=== PATIENT | male | born 1960 | race Caucasian/White ===

== ENCOUNTER 2016-11-17 11:38 | Inpatient (IN) | payer OTHER ==
[~2016-11-17] VITALS: Ht 180.3 cm; Wt 74.8 kg
[~2016-11-17 11:38] MED LIST: ASCO500C7 PO; BUPR75TA9 G-TUBE; CHOL100062 G-TUBE; LANS30CA GTB; MULT-552 GTB; VITA1CAP38 GTB
[2016-11-17] MEDS ORDERED: ONDANSETRON 4 MG INJ IV STA ×3 (15:12→18:20)
[2016-11-17] MEDS ORDERED: SOD CHLORIDE 0.9% 500 ML IV STA (15:12)
[2016-11-17] MEDS ORDERED: morphine 2 MG INJ IV STA (15:12)
[2016-11-17 15:42] LABS: BASOPHILS % 0.3 % (0.0-2.0); EOSINOPHILS % 0.1 % (0.0-7.0); HEMATOCRIT 38.3 % (42.0-52.0); LYMPHOCYTES # 1.6 10^3/ul (0.8-2.9); LYMPHOCYTES % 15.3 % (15.0-51.0); MEAN CORPUSCULAR HEMOGLOBIN 31.3 pg (29.0-33.0); MEAN CORPUSCULAR HGB CONC 33.9 g/dl (32.0-37.0); MEAN CORPUSCULAR VOLUME 92.2 fl (82.0-101.0); MONOCYTE # 0.6 10^3/ul (0.3-0.9); MONOCYTES % 6.2 % (0.0-11.0); NEUTROPHILS % 78.1 % (39.0-77.0); PLATELET COUNT 313 10^3/UL (140-440); RED BLOOD COUNT 4.16 10^6/ul (4.70-6.10); RED CELL DISTRIBUTION WIDTH 13.1 % (11.5-14.5); UNCORRECTED WBC 10.3 10^3/ul (4.8-10.8); WHITE BLOOD COUNT 10.3 10^3/ul (4.8-10.8)
[2016-11-17 15:44] LABS: CONDITION 1
[2016-11-17 15:48] LABS: INR 0.83; PT RATIO 0.9
[2016-11-17 15:49] LABS: ALBUMIN 4.5 g/dl (3.3-4.9); CHLORIDE 97 mmol/L (97-110)
[2016-11-17 15:50] LABS: POTASSIUM 4.2 mmol/L (3.5-5.1); SODIUM 145 mmol/L (135-144)
[2016-11-17 15:52] LABS: ALBUMIN/GLOBULIN RATIO 1.12; ALKALINE PHOSPHATASE 121 IU/L (42-121); ANION GAP 23 (8-16); ASPARTATE AMINO TRANSFERASE 21 IU/L (15-46); BILIRUBIN,INDIRECT 0.6 mg/dl (0-1.1); BILIRUBIN,TOTAL 0.6 mg/dl (0.2-1.3); BLOOD UREA NITROGEN 42 mg/dl (7-20); CARBON DIOXIDE 29 mmol/L (21-31); CREATININE 2.47 mg/dl (0.61-1.24); TOTAL PROTEIN 8.5 g/dl (6.1-8.1)
[2016-11-17 15:53] LABS: ALANINE AMINOTRANSFERASE 22 IU/L (13-69); CALCIUM 9.8 mg/dl (8.4-10.2); GLUCOSE 100 mg/dl (70-220)
[2016-11-17 16:05] LABS: TROPONIN-I < 0.012 ng/ml (0.00-0.12)
[2016-11-17 16:53] LABS: PARTIAL THROMBOPLASTIN TIME < 20.0 Sec (25.0-35.0); PROTIME 11.4 Sec (12.2-14.2)
[2016-11-17] MEDS ORDERED: METOCLOPRAMIDE 10 MG INJ IV ONE (17:00)
--- NOTE | 2016-11-17 17:50 | RADRPT ---
PROCEDURE: CT scan of the abdomen and pelvis without IV contrast. CLINICAL INDICATION: Abdominal pain. TECHNIQUE: Thin section axial, coronal and sagittal images were performed through the abdomen and pelvis without contrast. Radiation Dose: CTDI: 8.46 and DLP: 497.82. One or more of the following dose reduction techniques were used: - Automated exposure control. - Adjustment of the mA and/or kV according to patient size. Use of iterative reconstruction technique. COMPARISON: CT scan abdomen pelvis 07/11/2015. FINDINGS: Soft tissues: Normal. Lungs and pleural spaces:There is peripheral compressive atelectasis in the right lower lobe. This and vascular crowding and ground-glass infiltrate consistent with atelectasis inferior to the left hilum. No pleural effusion is present. Heart: Heart is normal in size. No pericardial effusion is present. The liver, common bile duct and gallbladder: The liver is normal. The gallbladder is normal. Gastrointestinal: There is a moderate size hiatal hernia. A gastrostomy tube is positioned in the s tomach. Stomach is incompletely distended mass likely accounts for gastric wall thickening. No asy mmetric gastric mass is identified. The small bowel loops and a normal caliber. There is fecal mat erial in the ascending and descending colon. The vermiform appendix is normal. There is no evidenc e of diverticulosis or diverticulitis. There is fecal material in the rectal ampulla. There are jadiel ateral inguinal hernias containing fat. Pancreas: The pancreas and extrahepatic common bile duct are normal. Kidneys, bladder and adrenal glands : The kidneys and urinary bladder are normal. The adrenal gland s are normal. Spleen: Normal. Lymph nodes: No enlarged inguinal, pelvic sidewall, mesenteric or retroperitoneal lymph nodes are id entified. Reproductive system and pelvis : Normal. Bony elements: There are degenerative osteophytes in the thoracic and lumbar spine. Vasculature: There are vascular calcifications in the abdominal aorta proximal left renal artery and distal left common iliac artery. IMPRESSION: 1. There is a small hiatal hernia. 2. Bibasilar atelectasis. 3. Satisfactory positioning of a gastrostomy tube in the stomach. Gastric wall thickening is attri buted to incomplete distension and is unchanged compared to the prior CT scan of 11/16/2015. Clinic al correlation is needed. 4. Atherosclerotic vascular disease. 5. 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 6. Bilateral inguinal hernias containing fat. RPTAT:AAJJ Rishi Luna, Physician Date Time Electronically viewed and signed by Rishi Luna Physician on 11/17/2016 17:50 JM/
[2016-11-17] MEDS ORDERED: SOD CHLORIDE 0.9% 1,000 ML IV ONE (18:30)
[2016-11-17] MEDS ORDERED: LORAZEPAM 2 MG INJ IV ONE (18:30)
[2016-11-17] MEDS ORDERED: morphine 2 MG INJ IV ONE (18:30)
[2016-11-17] MEDS ORDERED: FAMOTIDINE 20 MG INJ IV ONE (20:00)
[2016-11-17] MEDS ORDERED: ACETAMINOPHEN 325 MG TAB PO PRN (20:30)
[2016-11-17] MEDS ORDERED: ONDANSETRON 4 MG INJ IV PRN (20:30)
[2016-11-17 20:32] LABS: ADD UMIC YES; URINE BILIRUBIN (Dip) NEGATIVE (NEGATIVE); URINE BLOOD (Dip) NEGATIVE (NEGATIVE); URINE COLOR LT. YELLOW (YELLOW); URINE GLUCOSE (Dip) NEGATIVE (NEGATIVE); URINE KETONES (Dip) TRACE (NEGATIVE); URINE LEUKOCYTE ESTERASE (Dip) TRACE (NEGATIVE); URINE NITRITE (Dip) NEGATIVE (NEGATIVE); URINE TOTAL PROTEIN (Dip) TRACE (NEGATIVE); URINE UROBILINOGEN (Dip) 0.2 E.U./dL (0.1-1.0)
[2016-11-17 20:39] LABS: BACTERIA,URINE FEW; URINE RBCS 0-2 /HPF (0)
[2016-11-17 20:40] LABS: SQUAMOUS EPITHELIAL CELL,UR RARE
[2016-11-17] MEDS ORDERED: PROMETHAZINE (1.25 MG/ML) 5 ML CUP GTB ONE (21:30)
[2016-11-17 22:08] VITALS: PULSE 75; TEMP 99.2
--- NOTE | 2016-11-17 22:39 | ERD ---
ER Documentation Chief Complaint Date/Time DATE: 11/17/16 TIME: 22:29 Chief Complaint abdominal pain and nausea and vomiting for 2 days. no blood in emesis HPI This 46-year-old male presents emergency room for right lower quadrant, abdominal pain and nausea going for 2 days. No hematemesis. No diarrhea. She denies any fever chills, chest pain or shortness of breath. States this is happened to him proximal only 4 years ago and he couldn't stop vomiting for a few days and no one can find out why. ROS All systems reviewed and are negative except as per history of present illness. Medications Home Meds Reported Medications Ascorbic Acid* (Vitamin C*) 500 Mg Capsule.sa, 500 MG PO DAILY, CAP 09/25/16 Multivitamins* (Once Daily*) 1 Tab Tablet, 1 TAB GTB DAILY, TAB 02/28/16 Vitamin B Complex* (Vitamin B Complex*) 1 Cap Capsule, 1 CAP GTB DAILY, CAP 02/28/16 Cholecalciferol* (Vitamin D3*) 1,000 Unit Tablet, 1000 UNIT G-TUBE DAILY, TAB 02/28/16 Bupropion Hcl* (Bupropion Hcl*) 75 Mg Tablet, 75 MG G-TUBE BID, TAB 09/18/15 Lansoprazole* (Lansoprazole*) 30 Mg Capsule.dr, 30 MG GTB BID, CAP 01/14/15 Allergies Allergies: Coded Allergies: No Known Allergy (Verified , 09/25/16) PMhx/Soc History of Surgery: No (LEFT ARM SX '92, ABDOMEN SX '92, GTUBE) Anesthesia Reaction: No Hx Neurological Disorder: No Hx Respiratory Disorders: No Hx Cardiac Disorders: No Hx Psychiatric Problems: No Hx Alcohol Use: No Hx Substance Use: No Hx Tobacco Use: No Smoking Status: Former smoker Physical Exam Vitals Vital Signs Date Time Temp Pulse Resp B/P Pulse Ox O2 Delivery O2 Flow Rate FiO2 11/17/16 22:08 99.2 75 20 144/86 97 Room Air 11/17/16 20:00 99.2 80 20 135/75 100 Room Air 11/17/16 18:00 98.7 72 20 131/80 100 Room Air 11/17/16 16:00 98.7 77 20 153/86 96 Room Air 11/17/16 12:01 98.5 102 20 123/83 100 Physical Exam Const: [] Mild amount of distress, appears very comfortable, vomiting Head: Atraumatic Eyes: Normal Conjunctiva ENT: Normal External Ears, Nose and Mouth. Neck: Full range of motion..~ No meningismus. Resp: Clear to auscultation bilaterally Cardio: Regular tachycardia, no murmurs Abd: Soft, mild right lower quadrant tenderness without guarding or rebound, non distended. Normal bowel sounds Skin: No petechiae or rashes Back: No midline or flank tenderness Ext: No cyanosis, or edema Neur: Awake and alert and oriented 3, no focal deficits Psych: Normal Mood and Affect Result Diagram: 11/17/16 1525 11/17/16 1525 Results 24 hrs Laboratory Tests Test 11/17/16 15:25 11/17/16 16:25 11/17/16 20:09 Alanine Aminotransferase (ALT/SGPT) 22IU/L Albumin 4.5g/dl Albumin/Globulin Ratio 1.12 Alkaline Phosphatase 121IU/L Anion Gap 23 Aspartate Amino Transf (AST/SGOT) 21IU/L Basophils # 0.010^3/ul Basophils % 0.3% Blood Urea Nitrogen 42mg/dl Calcium Level 9.8mg/dl Carbon Dioxide Level 29mmol/L Chloride Level 97mmol/L Creatinine 2.47mg/dl Direct Bilirubin 0.00mg/dl Eosinophils # 0.010^3/ul Eosinophils % 0.1% Globulin 4.00g/dl Glucose Level 100mg/dl Hematocrit 38.3% Hemoglobin 13.0g/dl Indirect Bilirubin 0.6mg/dl Lactic Acid Level 2.2mmol/L Lipase 117U/L Lymphocytes # 1.610^3/ul Lymphocytes % 15.3% Mean Corpuscular Hemoglobin 31.3pg Mean Corpuscular Hemoglobin Concent 33.9g/dl Mean Corpuscular Volume 92.2fl Mean Platelet Volume 8.0fl Monocytes # 0.610^3/ul Monocytes % 6.2% Neutrophils # 8.010^3/ul Neutrophils % 78.1% Nucleated Red Blood Cells # 0.010^3/ul Nucleated Red Blood Cells % 0.0/100WBC Platelet Count 20859^3/UL Potassium Level 4.2mmol/L Red Blood Count 4.1610^6/ul Red Cell Distribution Width 13.1% Sodium Level 145mmol/L Total Bilirubin 0.6mg/dl Total Protein 8.5g/dl Troponin I < 0.012ng/ml White Blood Count 10.310^3/ul Activated Partial Thromboplast Time < 20.0Sec INR International Normalized Ratio 0.83 Prothrombin Time 11.4Sec Prothrombin Time Ratio 0.9 Urine Bacteria FEW Urine Bilirubin NEGATIVE Urine Clarity CLEAR Urine Color LT. YELLOW Urine Glucose NEGATIVE% Urine Hemoglobin NEGATIVE Urine Ketones TRACE Urine Leukocyte Esterase TRACE Urine Microscopic RBC 0-2/HPF Urine Microscopic WBC 0-2/HPF Urine Nitrite NEGATIVE Urine Specific [place] 1.010 Urine Squamous Epithelial Cells RARE Urine Total Protein TRACE Urine Urobilinogen 0.2 E.U./dL Urine pH 8.5 Current Medications Medications (Trade) Dose Ordered Sig/Dasia Route PRN Reason Start Time Stop Time Status Last Admin Dose Admin Sodium Chloride (NS) 500 ml @ 500 mls/hr Q1H STAT IV 11/17/16 15:12 11/17/16 16:11 DC 11/17/16 15:46 Morphine Sulfate (morphine) 2 mg ONCE STAT IV 11/17/16 15:12 11/17/16 15:13 DC 11/17/16 15:33 Ondansetron HCl (Zofran Inj) 4 mg ONCE STAT IV 11/17/16 15:12 11/17/16 15:13 DC 11/17/16 15:33 Ondansetron HCl (Zofran Inj) 4 mg ONCE STAT IV 11/17/16 16:38 11/17/16 16:39 DC 11/17/16 16:58 Metoclopramide HCl (Reglan) 10 mg ONCE ONCE IV 11/17/16 17:00 11/17/16 17:01 DC 11/17/16 16:58 Ondansetron HCl (Zofran Inj) 4 mg ONCE STAT IV 11/17/16 18:20 11/17/16 18:27 DC 11/17/16 18:40 Lorazepam (Ativan) 1 mg ONCE ONCE IV 11/17/16 18:30 11/17/16 18:31 DC 11/17/16 18:40 Morphine Sulfate 1 mg 1 mg ONCE ONCE IV 11/17/16 18:30 11/17/16 18:31 DC 11/17/16 18:40 Sodium Chloride (NS) 1,000 ml @ 1,000 mls/hr Q1H ONCE IV 11/17/16 18:30 11/17/16 19:29 DC 11/17/16 18:40 Famotidine (Pepcid Iv) 20 mg ONCE ONCE IV 11/17/16 20:00 11/17/16 20:01 DC 11/17/16 20:14 Ondansetron HCl (Zofran Inj) 4 mg BRIDGE ORDER PRN IV NAUSEA AND/OR VOMITING 11/17/16 20:30 11/18/16 20:29 Acetaminophen (Tylenol Tab) 650 mg ER BRIDGE PRN PO MILD PAIN/FEVER 11/17/16 20:30 11/18/16 20:29 Promethazine HCl (Phenergan Liq) 25 mg ONCE ONCE GTB 11/17/16 21:30 11/17/16 21:31 DC 11/17/16 21:56 Procedures/MDM Intractable vomiting and 56-year-old male. No obvious etiology on CAT scan. No signs of serious bacterial infection. Multiple doses of antiemetics and then used with a total 12 of Zofran, 10 of Reglan and 1 of Ativan. Following that the patient vomited small amount of brown liquid. Also given him Phenergan through his G-tube. Is abdominal pain was easily controlled with morphine. Originally in 2 mg does control the pain returned and he was given 4 mg. was given 2 L of normal saline for dehydration after which time is initially mild tachycardia resolved completely. Is already creatinine is consistent with his baseline of renal insufficiency. Vital signs are stable. I am admitting him for further treatment of his intractable nausea vomiting and possible GI or surgical consults. States it is similar episode 4 years ago in which she the cause was not found but after hospitalization multiple doses of medication resolved. Dr. Ni is admitting the patient. CT abdomen and pelvis interpretation by myself: See no acute process, no signs of intestinal obstruction such as air-fluid levels, no free air, no abnormal fat stranding, no fractures Departure Diagnosis: Primary Impression: Intractable vomiting Additional Impressions: Dehydration Abdominal pain Condition: Stable BOBOSIDNEYTRERANCE BENNETT Nov 17, 2016 22:39
[2016-11-17 23:18] VITALS: Ht 180.3 cm; Wt 74.8 kg
[2016-11-18] MEDS ORDERED: DEXTROSE 5%-0.225% NACL 1,000 ML IV SCH (01:00)
[2016-11-18] MEDS ORDERED: ONDANSETRON INJ 8 MG in DEXTROSE 5% 50 ML IV PRN ×2 (01:00→01:30)
[2016-11-18] MEDS ORDERED: METOCLOPRAMIDE 10 MG INJ IV PRN (01:00)
[2016-11-18 01:19] VITALS: BP 158/88; RESP 18
[2016-11-18] MEDS: DEXTROSE 5%-0.45% NACL 1,000 ML IV SCH ×2 (01:24→14:54)
--- NOTE | 2016-11-18 05:39 | HP ---
Date/Time of Note Date/Time of Note DATE: 11/18/16 TIME: 05:30 Assessment/Plan VTE Prophylaxis VTE Prophylaxis Intervention: heparin Lines/Catheters IV Catheter Type (from Nrs): Saline Lock Assessment/Plan Assessment/Plan IMPRESSION 1. Abdominal pain and intractable N/V 2. History of laryngeal cancer status post radiation therapy in the remote past. 3. Chronic kidney disease, stable 4. Chronic anemia, likely secondary to chronic kidney disease. 5. Mild Hypernatremia 6. Chronic depression and anxiety. 7. Chronic ataxia PLAN Abd pain is chronic and his vomiting could be from g-tube irritation. Will provide pain meds and anti-emetics Will consult GI if symptoms persisted Will cont home meds with adjustment as needed Avoid nephrotoxins and renally dose all meds HPI/ROS Admit Date/Time Admit Date/Time Nov 17, 2016 at 20:14 Hx of Present Illness . Chief Complaint abdominal pain and nausea and vomiting for 2 days. no blood in emesis This 46-year-old male presents emergency room for right lower quadrant, abdominal pain and nausea going for 2 days. No hematemesis. No diarrhea. She denies any fever chills, chest pain or shortness of breath. States this is happened to him proximal only 4 years ago and he couldn't stop vomiting for a few days and no one can find out why. He was last admitted here about a month ago and had his G-tube replaced. He was also discharged with nectar thick diet after speech/swallow eval. In ER today CTa/p showed the followin. There is a small hiatal hernia. Bibasilar atelectasis. Satisfactory positioning of a gastrostomy tube in the stomach. Gastric wall thickening is attributed to incomplete distension and is unchanged compared to the prior CT scan of 11/16/2015. Clinical correlation is needed. Atherosclerotic vascular disease. 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 Bilateral inguinal hernias containing fat. PMH/Family/Social Past Medical History Medical History: cancer, renal disease Past Surgical History Past Surgical Hx: other Social History Alcohol Use: none Smoking Status: Former smoker Drug Use: none Exam/Review of Systems Vital Signs Vitals Vital Signs Date Time Temp Pulse Resp B/P Pulse Ox O2 Delivery O2 Flow Rate FiO2 11/18/16 01:19 98.9 75 18 158/88 97 11/17/16 22:08 Room Air Intake and Output 11/17/16 11/17/16 11/18/16 15:00 23:00 07:00 Output Total 650 ml Balance -650 ml Exam Exam GENERAL: The patient was alert and oriented, no distress, mildly anxious HEENT: Head was normocephalic. Pupils were equal and reactive. NECK: Supple. CHEST: Clear to auscultation. CARDIOVASCULAR: S1 and S2, no murmur. ABDOMEN: Sore, not exactly tender, but soft. Normoactive bowel sounds. G- tube in place. EXTREMITIES: Negative for edema. NEUROLOGIC: The patient had no focal deficits, but reports the history of ataxia which is chronic. PSYCHIATRIC: Cooperative with exam. Labs Result Diagram: 11/17/16 1525 11/17/16 1525 Medications Medications Current Medications Bupropion HCl (Wellbutrin) 75 mg BID GTB ; Start 11/18/16 at 09:00 Cholecalciferol (Vitamin D) 1,000 unit DAILY GTB ; Start 11/18/16 at 09:00 Multivitamins (Thera-Plus) 5 ml DAILY GTB ; Start 11/18/16 at 09:00 Vitamin B Complex/ Vitamin C (Berocca) 1 cap DAILY GTB ; Start 11/18/16 at 09:00 Ascorbic Acid (Vitamin C) 500 mg DAILY GTB ; Start 11/18/16 at 09:00 Famotidine (Pepcid Iv) 20 mg DAILY IV ; Start 11/18/16 at 09:00 Metoclopramide HCl 10 mg 10 mg Q6H PRN IV NAUSEA AND/OR VOMITING; Start at 01:00 Ondansetron HCl 8 mg/Dextrose 54 ml @ 108 mls/hr Q6H PRN IV NAUSEA AND/OR VOMITING; Start 11/18/16 at 01:30 Dextrose/Sodium Chloride (D5-1/2ns) 1,000 ml @ 75 mls/hr [id number] IV Last administered on 11/18/16t 01:24; Admin Dose 75 MLS/HR; Start 11/18/16 at 01:30 STEWART MCKINNEY MD Nov 18, 2016 05:39
[2016-11-18] MEDS ORDERED: METOCLOPRAMIDE 10 MG INJ IV SCH (06:00)
[2016-11-18 07:24] VITALS: BP 111/72; RESP 18
[2016-11-18] MEDS ORDERED: FAMOTIDINE 20 MG INJ IV SCH ×2 (09:00→21:00)
[2016-11-18] MEDS: ASCORBIC ACID 500 MG TAB GTB SCH (09:17)
[2016-11-18] MEDS: VITAMIN B COMPLEX/VIT C CAP GTB SCH (09:17)
[2016-11-18] MEDS: BUPROPION 75 MG TAB GTB SCH ×2 (09:17→21:20)
[2016-11-18] MEDS: MULTIVITAMINS 5 ML CUP GTB SCH (09:17)
[2016-11-18] MEDS: CHOLECALCIFEROL 1,000 UNIT TAB GTB SCH (09:17)
--- NOTE | 2016-11-18 13:05 | CONS ---
Date/Time of Note Date/Time of Note DATE: 11/18/16 TIME: 13:04 Assessment/Plan Assessment/Plan Additional Assessment/Plan Abdominal pain Nausea Vomiting * Evaluate secondary to PUD versus bolus G-tube feeds * EGD plus PEG 09-30-16: 1. Old gastrostomy tube removed. 2. Esophagitis, moderate. 3. Gastritis and duodenitis. Rule out H. pylori infection. Biopsies obtained. 4. New percutaneous endoscopic gastrostomy tube placement with [place] [address] tube. * CT abdomen 11-17-16: The liver, common bile duct and gallbladder: The liver is normal. The gallbladder is normal.Gastrointestinal: There is a moderate size hiatal hernia. A gastrostomy tube is positioned in the stomach. Stomach is incompletely distended mass likely accounts for gastric wall thickening. No asymmetric gastric mass is identified. The small bowel loops and a normal caliber. There is fecal material in the ascending and descending colon. The vermiform appendix is normal. There is no evidence of diverticulosis or diverticulitis. There is fecal material in the rectal ampulla. There are bilateral inguinal hernias containing fat. Pancreas: The pancreas and extrahepatic common bile duct are normal. * Nutrition consult to advise on bolus G-tube feeding * May need case management consult to get pump for G-tube * Stool OB * PPI therapy * Monitor labs Dysphagia * Monitor tube feed for residuals greater than 150 mLs Further recommendations depend on clinical course Patient seen in collaboration with Dr. 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 Patient states he was not eating anything out of the ordinary. Patient reports last male was ice cream. Patient reports majority of nutrition from G-tube feed. Patient has had G-tube since August 2014 prior to completion of radiation and chemotherapy. Patient has also had G-tube replaced in the emergency room due to malfunctioning on September 18, 2015 and November 10, 2015. Patient also had EGD with G-tube replacement with Dr. Jackson January 06, 2016 and 09-30-16 and both noted erosive esophagitis, gastritis, biopsy negative for H. pylori and malignancy. Per bedside nurse, caregiver provides 500 mL bolus tube feed 3 times daily. Caregiver not at bedside during evaluation. Past Medical History Medical History: cancer, renal disease Past Surgical History Past Surgical Hx: other Social History Alcohol Use: none Smoking Status: Former smoker Drug Use: none Exam/Review of Systems Vital Signs Vitals Vital Signs Date Time Temp Pulse Resp B/P Pulse Ox O2 Delivery O2 Flow Rate FiO2 11/18/16 07:24 98.0 72 18 111/72 98 11/17/16 22:08 Room Air Intake and Output 11/17/16 11/17/16 11/18/16 15:00 23:00 07:00 Intake Total 300 ml Output Total 650 ml Balance -650 ml 300 ml Exam Constitutional: alert, oriented, well developed Psych: nl mood/affect Eyes: EOMI Respiratory: clear to auscultation Cardiovascular: regular rate and rhythm Gastrointestinal: soft, non tender Neurological: DECK MOLDER II-XII intact Results Result Diagram: 11/17/16 1525 11/17/16 1525 Results 24 hrs Laboratory Tests Test 11/17/16 15:25 11/17/16 16:25 11/17/16 20:09 Alanine Aminotransferase (ALT/SGPT) 22 Albumin 4.5 Albumin/Globulin Ratio 1.12 Alkaline Phosphatase 121 Anion Gap 23 H Aspartate Amino Transf (AST/SGOT) 21 Basophils # 0.0 Basophils % 0.3 Blood Urea Nitrogen 42 H Calcium Level 9.8 Carbon Dioxide Level 29 Chloride Level 97 Creatinine 2.47 H Direct Bilirubin 0.00 Eosinophils # 0.0 Eosinophils % 0.1 Globulin 4.00 H Glucose Level 100 Hematocrit 38.3 #L Hemoglobin 13.0 #L Indirect Bilirubin 0.6 Lactic Acid Level 2.2 Lipase 117 Lymphocytes # 1.6 Lymphocytes % 15.3 Mean Corpuscular Hemoglobin 31.3 Mean Corpuscular Hemoglobin Concent 33.9 Mean Corpuscular Volume 92.2 Mean Platelet Volume 8.0 Monocytes # 0.6 Monocytes % 6.2 Neutrophils # 8.0 H Neutrophils % 78.1 H Nucleated Red Blood Cells # 0.0 Nucleated Red Blood Cells % 0.0 Platelet Count 313 Potassium Level 4.2 Red Blood Count 4.16 #L Red Cell Distribution Width 13.1 Sodium Level 145 H Total Bilirubin 0.6 Total Protein 8.5 H Troponin I < 0.012 White Blood Count 10.3 # Activated Partial Thromboplast Time < 20.0 L INR International Normalized Ratio 0.83 Prothrombin Time 11.4 #L Prothrombin Time Ratio 0.9 Urine Bacteria FEW Urine Bilirubin NEGATIVE Urine Clarity CLEAR Urine Color LT. YELLOW Urine Glucose NEGATIVE Urine Hemoglobin NEGATIVE Urine Ketones TRACE Urine Leukocyte Esterase TRACE H Urine Microscopic RBC 0-2 Urine Microscopic WBC 0-2 Urine Nitrite NEGATIVE Urine Specific [place] 1.010 Urine Squamous Epithelial Cells RARE Urine Total Protein TRACE Urine Urobilinogen 0.2 E.U./dL Urine pH 8.5 Medications Medications Current Medications Bupropion HCl (Wellbutrin) 75 mg BID GTB Last administered on 11/18/16 09:17; Admin Dose 75 MG; Start 11/18/16 at 09:00 Cholecalciferol (Vitamin D) 1,000 unit DAILY GTB Last administered on 11/18/16:; Admin Dose 1,000 UNIT; Start 11/18/16 at 09:00 Multivitamins (Thera-Plus) 5 ml DAILY GTB Last administered on 11/18/16:; Admin Dose 5 ML; Start 11/18/16 at 09:00 Vitamin B Complex/ Vitamin C (Berocca) 1 cap DAILY GTB Last administered on 11/18 09:17; Admin Dose 1 CAP; Start 11/18/16 at 09:00 Ascorbic Acid (Vitamin C) 500 mg DAILY GTB Last administered on 11/18/16:17 ; Admin Dose 500 MG; Start 11/18/16 at 09:00 Famotidine (Pepcid Iv) 20 mg DAILY IV Last administered on 11/18/16:17; Admin Dose 20 MG; Start 11/18/16 at 09:00 Metoclopramide HCl 10 mg 10 mg Q6H PRN IV NAUSEA AND/OR VOMITING; Start at 01:00 Ondansetron HCl 8 mg/Dextrose 54 ml @ 108 mls/hr Q6H PRN IV NAUSEA AND/OR VOMITING; Start 11/18/16 at 01:30 Dextrose/Sodium Chloride (D5-1/2ns) 1,000 ml @ 75 mls/hr [id number] IV Last administered on 11/18/16 01:24; Admin Dose 75 MLS/HR; Start 11/18/16 at 01:30 MINAL MAY 4, 2017 13:05
[2016-11-18] MEDS: FAMOTIDINE 20 MG INJ IV SCH (14:51)
[2016-11-18 20:42] VITALS: BP 108/66; RESP 20
[2016-11-18] MEDS ORDERED: BACLOFEN 10 MG TAB GTB ONE (23:00)
[2016-11-19] MEDS: DEXTROSE 5%-0.45% NACL 1,000 ML IV SCH ×2 (03:53→17:08)
[2016-11-19 07:06] LABS: BASOPHILS % 0.6 % (0.0-2.0); EOSINOPHILS # 0.2 10^3/ul (0.0-0.5); EOSINOPHILS % 2.4 % (0.0-7.0); HEMATOCRIT 27.5 % (42.0-52.0); HEMOGLOBIN 9.5 g/dl (14.0-18.0); LYMPHOCYTES # 1.4 10^3/ul (0.8-2.9); LYMPHOCYTES % 19.7 % (15.0-51.0); MEAN CORPUSCULAR HEMOGLOBIN 31.8 pg (29.0-33.0); MEAN CORPUSCULAR HGB CONC 34.4 g/dl (32.0-37.0); MEAN CORPUSCULAR VOLUME 92.5 fl (82.0-101.0); MEAN PLATELET VOLUME 8.2 fl (7.4-10.4); MONOCYTE # 0.6 10^3/ul (0.3-0.9); MONOCYTES % 8.3 % (0.0-11.0); NEUTROPHIL # 4.9 10^3/ul (1.6-7.5); PLATELET COUNT 232 10^3/UL (140-440); RED BLOOD COUNT 2.98 10^6/ul (4.70-6.10); RED CELL DISTRIBUTION WIDTH 13.3 % (11.5-14.5); UNCORRECTED WBC 7.1 10^3/ul (4.8-10.8); WHITE BLOOD COUNT 7.1 10^3/ul (4.8-10.8)
[2016-11-19 07:09] LABS: CONDITION 1
[2016-11-19 07:20] LABS: POTASSIUM 3.9 mmol/L (3.5-5.1)
[2016-11-19 07:22] LABS: CREATININE 2.55 mg/dl (0.61-1.24)
[2016-11-19 07:23] LABS: CALCIUM 8.6 mg/dl (8.4-10.2); MAGNESIUM 1.9 mg/dl (1.7-2.5)
[2016-11-19 08:10] VITALS: BP 104/69; RESP 18
--- NOTE | 2016-11-19 08:47 | CONS ---
Date/Time of Note Date/Time of Note DATE: 11/19/16 TIME: 08:47 Assessment/Plan Assessment/Plan Additional Assessment/Plan Abdominal pain Nausea Vomiting * Evaluate secondary to PUD versus bolus G-tube feeds * EGD plus PEG 09-30-16: 1. Old gastrostomy tube removed. 2. Esophagitis, moderate. 3. Gastritis and duodenitis. Rule out H. pylori infection. Biopsies obtained. 4. New percutaneous endoscopic gastrostomy tube placement with [place] [address] tube. * CT abdomen 11-17-16: The liver, common bile duct and gallbladder: The liver is normal. The gallbladder is normal.Gastrointestinal: There is a moderate size hiatal hernia. A gastrostomy tube is positioned in the stomach. Stomach is incompletely distended mass likely accounts for gastric wall thickening. No asymmetric gastric mass is identified. The small bowel loops and a normal caliber. There is fecal material in the ascending and descending colon. The vermiform appendix is normal. There is no evidence of diverticulosis or diverticulitis. There is fecal material in the rectal ampulla. There are bilateral inguinal hernias containing fat. Pancreas: The pancreas and extrahepatic common bile duct are normal. * Nutrition consult to advise on bolus G-tube feeding * May need case management consult to get pump for G-tube * Stool OB * PPI therapy * Monitor labs Dysphagia * Monitor tube feed for residuals greater than 150 mLs Further recommendations depend on clinical course Patient seen in collaboration with Dr. Jackson Consultation Date/Type/Reason Admit Date/Time Nov 17, 2016 at 20:14 Initial Consult Date Type of Consultation: Gastroenterology 24 HR Interval Summary Free Text/Dictation Patient to start p.o. diet with calorie counts Dieing Out Machine Operator to determine appropriate amount of bolus of tube feeds At bedside patient denies abdominal pain, nausea, vomiting Exam/Review of Systems Vital Signs Vitals Vital Signs Date Time Temp Pulse Resp B/P Pulse Ox O2 Delivery O2 Flow Rate FiO2 11/19/16 08:10 97.7 63 18 104/69 96 11/17/16 22:08 Room Air Intake and Output 11/18/16 11/18/16 11/19/16 15:00 23:00 07:00 Intake Total 700 ml 500 ml 1845 ml Output Total 450 ml 300 ml Balance 700 ml 50 ml 1545 ml Exam Constitutional: alert, oriented, well developed Psych: nl mood/affect Eyes: EOMI Respiratory: clear to auscultation Cardiovascular: regular rate and rhythm Gastrointestinal: soft, non tender Neurological: OUTSIDE RIGGER II-XII intact Results Result Diagram: 11/19/16 0500 11/19/16 0500 Results 24 hrs Laboratory Tests Test 11/19/16 05:00 Anion Gap 16 # Basophils # 0.0 Basophils % 0.6 Blood Urea Nitrogen 32 H Calcium Level 8.6 Carbon Dioxide Level 26 Chloride Level 103 Creatinine 2.55 H Eosinophils # 0.2 Eosinophils % 2.4 Glucose Level 87 Hematocrit 27.5 #L Hemoglobin 9.5 #L Lymphocytes # 1.4 Lymphocytes % 19.7 Magnesium Level 1.9 Mean Corpuscular Hemoglobin 31.8 Mean Corpuscular Hemoglobin Concent 34.4 Mean Corpuscular Volume 92.5 Mean Platelet Volume 8.2 Monocytes # 0.6 Monocytes % 8.3 Neutrophils # 4.9 Neutrophils % 69.0 Nucleated Red Blood Cells # 0.0 Nucleated Red Blood Cells % 0.0 Platelet Count 232 # Potassium Level 3.9 Red Blood Count 2.98 #L Red Cell Distribution Width 13.3 Sodium Level 141 White Blood Count 7.1 # Medications Medications Current Medications Bupropion HCl (Wellbutrin) 75 mg BID GTB Last administered on 11/18/16 21:20; Admin Dose 75 MG; Start 11/18/16 at 09:00 Cholecalciferol (Vitamin D) 1,000 unit DAILY GTB Last administered on 11/18/16 09:17; Admin Dose 1,000 UNIT; Start 11/18/16 at 09:00 Multivitamins (Thera-Plus) 5 ml DAILY GTB Last administered on 11/18/16 09:17; Admin Dose 5 ML; Start 11/18/16 at 09:00 Vitamin B Complex/ Vitamin C (Berocca) 1 cap DAILY GTB Last administered on 11/18 09:17; Admin Dose 1 CAP; Start 11/18/16 at 09:00 Ascorbic Acid (Vitamin C) 500 mg DAILY GTB Last administered on 11/18/16 09:17 ; Admin Dose 500 MG; Start 11/18/16 at 09:00 Metoclopramide HCl 10 mg 10 mg Q6H PRN IV NAUSEA AND/OR VOMITING; Start at 01:00 Ondansetron HCl 8 mg/Dextrose 54 ml @ 108 mls/hr Q6H PRN IV NAUSEA AND/OR VOMITING; Start 11/18/16 at 01:30 Dextrose/Sodium Chloride (D5-1/2ns) 1,000 ml @ 75 mls/hr [id number] IV Last administered on 11/19/16 03:53; Admin Dose 75 MLS/HR; Start 11/18/16 at 01:30 Famotidine (Pepcid Iv) 20 mg Q24H IV Last administered on 11/18/16 14:51; Admin Dose 20 MG; Start 11/18/16 at 14:00 MINAL MAY Nov 19, 2016 08:47
[2016-11-19] MEDS: ASCORBIC ACID 500 MG TAB GTB SCH (08:56)
[2016-11-19] MEDS: MULTIVITAMINS 5 ML CUP GTB SCH (08:56)
[2016-11-19] MEDS: CHOLECALCIFEROL 1,000 UNIT TAB GTB SCH (08:56)
[2016-11-19] MEDS: VITAMIN B COMPLEX/VIT C CAP GTB SCH (08:56)
[2016-11-19] MEDS: BUPROPION 75 MG TAB GTB SCH ×2 (08:56→22:30)
[2016-11-19] MEDS: FAMOTIDINE 20 MG INJ IV SCH (13:13)
[2016-11-19] MEDS ORDERED: ZOLPIDEM 5 MG TAB PO PRN (15:30)
--- NOTE | 2016-11-19 16:32 | PN ---
Date/Time of Note Date/Time of Note DATE: 11/19/16 TIME: 16:13 Assessment/Plan VTE Prophylaxis VTE Prophylaxis Intervention: heparin Lines/Catheters IV [facility] Peripheral IV Urinary Cath still in place: No Assessment/Plan Assessment/Plan PROBLEMS: 1. Abdominal pain and intractable N/VL: resolved on tube feeds * thought to be 2/2 overfeeding from both G-tube and orally * Different reports from patient, caregiver and mother regarding exactly how much patient consumes daily * Patient has had no pain or nausea on tube feeds 2. History of laryngeal cancer status post radiation therapy in the remote past. 3. Chronic kidney disease, stable 4. Chronic anemia, likely secondary to chronic kidney disease. 5. Mild Hypernatremia: resolved 6. Chronic depression and anxiety: stable on home meds 7. Chronic ataxia PLAN: Will commence oral feeds based on last ST assessment of pureed diet with nectar thick liquids Will obtain calorie count Will provide 1/4 of daily required calories (550 calories) via G-tube and see if patient can provide the rest orally. We will also see if patient can tolerate this regimen without pain or nausea F/u urine cx / continue to monitor creatinine Above has been discussed with GI. Continue supportive care Subjective 24 Hr Interval Summary Free Text/Dictation patient feels well wants to eat orally Spoke with GI, spoke with nursing Exam/Review of Systems Vital Signs Vitals Vital Signs Date Time Temp Pulse Resp B/P Pulse Ox O2 Delivery O2 Flow Rate FiO2 11/19/16 08:10 97.7 63 18 104/69 96 11/17/16 22:08 Room Air Intake and Output 11/18/16 11/18/16 11/19/16 15:00 23:00 07:00 Intake Total 700 ml 500 ml 1845 ml Output Total 450 ml 300 ml Balance 700 ml 50 ml 1545 ml Exam Constitutional: alert, oriented, No distress Head: normocephalic Eyes: PERRL, No icteric ENMT: other (no thrush) Respiratory: diminished breath sounds, No crackles/rales Cardiovascular: regular rate and rhythm, No murmurs/extra sounds Gastrointestinal: non-tender, other (g-tube noted), soft Musculoskeletal: nl extremities to inspection Neurological: lethargic Results Result Diagram: 11/19/16 0500 11/19/16 0500 Results 24 hrs Laboratory Tests Test 11/19/16 05:00 Anion Gap 16 # Basophils # 0.0 Basophils % 0.6 Blood Urea Nitrogen 32 H Calcium Level 8.6 Carbon Dioxide Level 26 Chloride Level 103 Creatinine 2.55 H Eosinophils # 0.2 Eosinophils % 2.4 Glucose Level 87 Hematocrit 27.5 #L Hemoglobin 9.5 #L Lymphocytes # 1.4 Lymphocytes % 19.7 Magnesium Level 1.9 Mean Corpuscular Hemoglobin 31.8 Mean Corpuscular Hemoglobin Concent 34.4 Mean Corpuscular Volume 92.5 Mean Platelet Volume 8.2 Monocytes # 0.6 Monocytes % 8.3 Neutrophils # 4.9 Neutrophils % 69.0 Nucleated Red Blood Cells # 0.0 Nucleated Red Blood Cells % 0.0 Platelet Count 232 # Potassium Level 3.9 Red Blood Count 2.98 #L Red Cell Distribution Width 13.3 Sodium Level 141 White Blood Count 7.1 # Medications Medications Current Medications Bupropion HCl (Wellbutrin) 75 mg BID GTB Last administered on 11/19/16 08:56; Admin Dose 75 MG; Start 11/18/16 at 09:00 Cholecalciferol (Vitamin D) 1,000 unit DAILY GTB Last administered on 11/19/16 08:56; Admin Dose 1,000 UNIT; Start 11/18/16 at 09:00 Multivitamins (Thera-Plus) 5 ml DAILY GTB Last administered on 11/19/16 08:56; Admin Dose 5 ML; Start 11/18/16 at 09:00 Vitamin B Complex/ Vitamin C (Berocca) 1 cap DAILY GTB Last administered on 11/19 08:56; Admin Dose 1 CAP; Start 11/18/16 at 09:00 Ascorbic Acid (Vitamin C) 500 mg DAILY GTB Last administered on 11/19/16 08:56 ; Admin Dose 500 MG; Start 11/18/16 at 09:00 Metoclopramide HCl 10 mg 10 mg Q6H PRN IV NAUSEA AND/OR VOMITING; Start at 01:00 Ondansetron HCl 8 mg/Dextrose 54 ml @ 108 mls/hr Q6H PRN IV NAUSEA AND/OR VOMITING; Start 11/18/16 at 01:30 Dextrose/Sodium Chloride (D5-1/2ns) 1,000 ml @ 75 mls/hr [id number] IV Last administered on 11/19/16 03:53; Admin Dose 75 MLS/HR; Start 11/18/16 at 01:30 Famotidine (Pepcid Iv) 20 mg Q24H IV Last administered on 11/19/16 13:13; Admin Dose 20 MG; Start 11/18/16 at 14:00 Zolpidem Tartrate (Ambien) 5 mg HS PRN PO INSOMNIA; Start 11/19/16 at 15:30 YULISA LEVINE Nov 19, 2016 16:24
[2016-11-19 19:58] VITALS: BP 114/61; RESP 16
[2016-11-20] MEDS: DEXTROSE 5%-0.45% NACL 1,000 ML IV SCH (05:05)
[2016-11-20 06:42] LABS: BASOPHILS % 0.4 % (0.0-2.0); EOSINOPHILS # 0.1 10^3/ul (0.0-0.5); EOSINOPHILS % 2.6 % (0.0-7.0); HEMATOCRIT 29.2 % (42.0-52.0); HEMOGLOBIN 9.9 g/dl (14.0-18.0); LYMPHOCYTES # 1.1 10^3/ul (0.8-2.9); LYMPHOCYTES % 26.5 % (15.0-51.0); MEAN CORPUSCULAR HEMOGLOBIN 31.5 pg (29.0-33.0); MEAN CORPUSCULAR VOLUME 92.7 fl (82.0-101.0); MEAN PLATELET VOLUME 8.1 fl (7.4-10.4); MONOCYTE # 0.3 10^3/ul (0.3-0.9); MONOCYTES % 7.9 % (0.0-11.0); NEUTROPHIL # 2.6 10^3/ul (1.6-7.5); NEUTROPHILS % 62.6 % (39.0-77.0); PLATELET COUNT 251 10^3/UL (140-440); RED BLOOD COUNT 3.15 10^6/ul (4.70-6.10); UNCORRECTED WBC 4.1 10^3/ul (4.8-10.8); WHITE BLOOD COUNT 4.1 10^3/ul (4.8-10.8)
[2016-11-20 06:48] LABS: CONDITION 1
[2016-11-20 06:56] LABS: CALCIUM 8.8 mg/dl (8.4-10.2); CREATININE 2.36 mg/dl (0.61-1.24)
[2016-11-20 08:24] VITALS: BP 129/68; RESP 18
[2016-11-20] MEDS: BUPROPION 75 MG TAB GTB SCH (09:04)
[2016-11-20] MEDS: CHOLECALCIFEROL 1,000 UNIT TAB GTB SCH (09:04)
[2016-11-20] MEDS: MULTIVITAMINS 5 ML CUP GTB SCH (09:04)
[2016-11-20] MEDS: ASCORBIC ACID 500 MG TAB GTB SCH (09:04)
[2016-11-20] MEDS: VITAMIN B COMPLEX/VIT C CAP GTB SCH (09:04)
[2016-11-20] MEDS: FAMOTIDINE 20 MG INJ IV SCH (13:40)
[2016-11-20] MEDS ORDERED: PNEUMOCOCCAL VACCINE 0.5 ML INJ IM* ONE (14:30)
--- NOTE | 2016-11-20 15:05 | PDOCDIS ---
Discharge Instructions CONDITION Patient Condition: Stable HOME CARE INSTRUCTIONS: Special Diet: Gtube & Pureed [place] Thick ACTIVITY: Activity Restrictions: Special Exercises FOLLOW UP/APPOINTMENTS Appointments Follow up with PCP in one week REFERRALS Other Referrals Home health for physical therapy, occupational therapy and speech therapy ISRAEL GUILLEN MD Nov 20, 2016 15:05
[2016-11-20] MEDS ORDERED: UDREG GTB (15:08)
--- NOTE | 2016-11-21 01:17 | DS ---
DATE OF ADMISSION: 11/17/2016 DATE OF DISCHARGE: 11/20/2016 SENIOR SOFTWARE SYSTEMS ENGINEER: Collar Stay Fuser Tender PROCEDURES: None. DISCHARGE DIAGNOSES: 1. Abdominal pain with intractable nausea and vomiting, resolved, on tube feeding. 2. History of laryngeal cancer status post radiation therapy. 3. Chronic kidney insufficiency. 4. Chronic anemia. 5. Mild hypernatremia 6. Chronic depression, anxiety. 7. Chronic ataxia. MEDICATIONS: NEW MEDICATION: Reglan. Patient will continue his other medications: 1. Vitamin C. 2. Bupropion. 3. Vitamin D. 4. Prevacid. 5. Multivitamin. 6. Vitamin B complex. ALLERGIES: NO KNOWN DRUG ALLERGIES. HOSPITAL COURSE: This is a 46-year-old gentleman with a past medical history of laryngeal cancer st atus post radiation therapy, chronic kidney disease, chronic anemia, status post PEG tube placement, on PEG tube feeding, who presented to [facility] having right lower quadrant abd ominal pain with nausea x2 days. There is no hematemesis, no diarrhea. Denies having any fever, ch ills, shortness of breath or any other discomfort. Unfortunately, the patient is bed bound and does not ambulate secondary to his debility. He recently had an upper endoscopy in September 2016. The patient was last admitted at [facility] as stated above and had his G-tube replace d. He was discharged on a nectar thick diet after his speech and swallow evaluation. 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 Th e patient was seen and evaluated by business area manager and has been cleared by business area manager to restart feeding. Patient was started feeding through the G-tube and by oral. Patient has been abl e to tolerate oral intake without any nausea, vomiting, diarrhea. His lab work showed sodium 140, p otassium 4.0, chloride 104, bicarbonate 26, BUN 28, creatinine 2.36, glucose 104, calcium 8.8. His BUN at the time of discharge was 42. He was started on IV fluid, which has improved to 28. His WBC 4.1, hemoglobin 9.9, hematocrit 9.2, platelets 251. His vitals, temperature 98.8, pulse 67, respira tions 18, blood pressure 129/60, oxygen 96%. patient is medically stable to be discharged rashida e. I have consulted case work aide to set up the patient with home health for physical therapy, occup ational therapy and speech therapy. Total amount of time spent for evaluation of patient and discharge workup was 40 minutes. Dictated By: ISRAEL DONALD/NTS Conf#: [id number] DID#: [id number]
[2016-11-21] MEDS ORDERED: FAMOTIDINE 20 MG TAB GTB SCH (09:00)
== END 2016-11-20 18:14 | disposition home health service (06) | DRG 392 ==
LOC: E/R 11:38 → PP2 20:14
PROVIDERS: ADMIT Internal Medicine; ATTEND Internal Medicine
DX: R11.2 Nausea with vomiting, unspecified (principal); E87.0 Hyperosmolality and hypernatremia; E86.0 Dehydration; N18.9 Chronic kidney disease, unspecified; F32.9 Major depressive disorder, single episode, unspecified; F41.9 Anxiety disorder, unspecified; R27.0 Ataxia, unspecified; D63.1 Anemia in chronic kidney disease; Z74.01 Bed confinement status; Z93.1 Gastrostomy status; Z87.891 Personal history of nicotine dependence; Z85.21 Personal history of malignant neoplasm of larynx
CPT/HCPCS: 36415; 74176; 80048; 80053; 81001; 81003; 83605; 83690; 83735; 84484; 85025; 85610; 85730; 87081; 87086; 90732; 96374; 96375; 96376; 97162; J2060; J2270; J2405; J2765; J7030; J7040; J7042

== ENCOUNTER 2017-02-12 06:47 | Emergency (ER) | payer OTHER ==
[~2017-02-12] VITALS: Ht 180.3 cm; Wt 75.0 kg
[~2017-02-12 06:47] MED LIST changes: +UDREG GTB
[2017-02-12 07:07] VITALS: Ht 180.3 cm; Wt 75.0 kg
[2017-02-12] MEDS ORDERED: ONDANSETRON 4 MG INJ IV STA (07:16)
[2017-02-12] MEDS ORDERED: SOD CHLORIDE 0.9% 1,000 ML IV STA (07:16)
[2017-02-12] MEDS ORDERED: BELLADONNA/PHENOBARBITAL TAB PO STA (07:16)
[2017-02-12] MEDS ORDERED: LIDOCAINE/MYLANTA 40 ML BTL PO STA (07:16)
[2017-02-12] MEDS ORDERED: morphine 4 MG/ML VIAL IV STA (07:16)
[2017-02-12 07:29] LABS: ADD SCAN DIFF NO
[2017-02-12 07:32] LABS: ABNORMAL IP MESSAGE 1; BASOPHILS % 0.2 % (0.0-2.0); HEMATOCRIT 37.2 % (42.0-52.0); HEMOGLOBIN 12.5 g/dl (14.0-18.0); LYMPHOCYTES # 0.5 10^3/ul (0.8-2.9); LYMPHOCYTES % 4.1 % (15.0-51.0); MEAN CORPUSCULAR HEMOGLOBIN 30.4 pg (29.0-33.0); MEAN CORPUSCULAR HGB CONC 33.6 g/dl (32.0-37.0); MEAN CORPUSCULAR VOLUME 90.5 fl (82.0-101.0); MEAN PLATELET VOLUME 9.6 fl (7.4-10.4); MONOCYTE # 0.7 10^3/ul (0.3-0.9); MONOCYTES % 5.6 % (0.0-11.0); NEUTROPHIL # 11.3 10^3/ul (1.6-7.5); NEUTROPHILS % 89.6 % (39.0-77.0); PLATELET COUNT 308 10^3/UL (140-415); RED BLOOD COUNT 4.11 10^6/ul (4.70-6.10); RED CELL DISTRIBUTION WIDTH 12.7 % (11.5-14.5); WHITE BLOOD COUNT 12.6 10^3/ul (4.8-10.8)
--- NOTE | 2017-02-12 07:51 | RADRPT ---
PROCEDURE: Chest Radiograph. CLINICAL INDICATION: Abdominal pain TECHNIQUE: Single frontal chest radiograph. COMPARISON: Chest radiograph 04/23/2015 FINDINGS: The cardiomediastinal silhouette is within normal limits. No infiltrate or effusion is seen. Th e bones are intact. IMPRESSION: 1. Unremarkable chest radiograph. RPTAT: HJBF .Con Blackmon MD, MD Date Time Electronically viewed and signed by .Con Blackmon MD, on 02/12/2017 07:50 .B/
[2017-02-12] MEDS ORDERED: OMEP20CA16 G-TUBE (07:55)
[2017-02-12 07:58] LABS: ALANINE AMINOTRANSFERASE 23 IU/L (13-69); ALBUMIN 4.6 g/dl (3.3-4.9); ALBUMIN/GLOBULIN RATIO 1.21; ALKALINE PHOSPHATASE 115 IU/L (42-121); ANION GAP 15 (8-16); ASPARTATE AMINO TRANSFERASE 18 IU/L (15-46); BILIRUBIN,INDIRECT 0.6 mg/dl (0-1.1); BILIRUBIN,TOTAL 0.6 mg/dl (0.2-1.3); BLOOD UREA NITROGEN 28 mg/dl (7-20); CALCIUM 9.6 mg/dl (8.4-10.2); CARBON DIOXIDE 28 mmol/L (21-31); CHLORIDE 100 mmol/L (97-110); CREATININE 2.33 mg/dl (0.61-1.24); GLUCOSE 208 mg/dl (70-220); POTASSIUM 3.6 mmol/L (3.5-5.1); SODIUM 139 mmol/L (135-144); TOTAL PROTEIN 8.4 g/dl (6.1-8.1)
[2017-02-12] MEDS ORDERED: FAMO40TA52 PO (08:02)
[2017-02-12] MEDS ORDERED: MAG355OR14 PO (08:02)
[2017-02-12] MEDS ORDERED: ONDA4TAB8 PO (08:02)
--- NOTE | 2017-02-12 08:05 | ERD ---
ER Documentation Chief Complaint Date/Time DATE: 02/12/17 TIME: 08:04 Chief Complaint coffee ground emesis HPI 56-year-old man complains of abdominal pain mostly epigastric, similar to multiple previous episodes in the past. He also states he has had some vomiting but does have a long history of dysphagia and PEG tube. He denies blood per rectum or melena, no loss of consciousness, no chest pain or shortness of breath, no vomiting or diarrhea. ROS All systems reviewed and are negative except as per history of present illness. Medications Home Meds Active Scripts Famotidine* (Famotidine*) 40 Mg Tablet, 40 MG PO DAILY, #30 TAB Prov:ORQUIDEA KING MD 02/12/17 Ondansetron Hcl* (Zofran*) 4 Mg Tablet, 4 MG PO Q6H Y for VOMITTING, #15 TAB Prov:ORQUIDEA KING MD 02/12/17 Mag Hydrox/Al Hydrox/Simeth (Maalox Advanced Suspension) 355 Ml Oral.susp, 2 TSP PO TID for PAIN, #24 OZ Prov:ORQUIDEA KING MD 02/12/17 Metoclopramide* (Reglan*) 10 Mg/10 Ml Soln, 5 MG GTB Q6 Y for NAUSEA AND/OR VOMITING, #150 ML Prov:ISRAEL GUILLEN MD 11/20/16 Reported Medications Omeprazole* (Omeprazole*) 20 Mg Capsule., 40 MG G-TUBE DAILY, #30 CAP 02/12/17 Ascorbic Acid* (Vitamin C*) 500 Mg Capsule.sa, 500 MG PO DAILY, CAP 09/25/16 Multivitamins* (Once Daily*) 1 Tab Tablet, 1 TAB GTB DAILY, TAB 02/28/16 Vitamin B Complex* (Vitamin B Complex*) 1 Cap Capsule, 1 CAP GTB DAILY, CAP 02/28/16 Cholecalciferol* (Vitamin D3*) 1,000 Unit Tablet, 1000 UNIT G-TUBE DAILY, TAB 02/28/16 Bupropion Hcl* (Bupropion Hcl*) 75 Mg Tablet, 75 MG G-TUBE BID, TAB 09/18/15 Discontinued Reported Medications Lansoprazole* (Lansoprazole*) 30 Mg Capsule., 30 MG GTB BID, CAP 01/14/15 Allergies Allergies: Coded Allergies: No Known Allergy (Verified , 09/25/16) PMhx/Soc Gastritis, history of laryngeal cancer status post radiation and chemotherapy, chronic kidney disease, anemia, depression, dysphagia and gastrostomy tube placement History of Surgery: Yes Anesthesia Reaction: No Hx Neurological Disorder: No Hx Respiratory Disorders: No Hx Cardiac Disorders: No Hx Psychiatric Problems: No Hx Miscellaneous Medical Probl: Yes (throat CA) Hx Alcohol Use: No Hx Substance Use: No Hx Tobacco Use: No Smoking Status: Never smoker FmHx Family History: No diabetes Physical Exam Vitals Vital Signs Date Time Temp Pulse Resp B/P Pulse Ox O2 Delivery O2 Flow Rate FiO2 02/12/17 08:52 69 15 139/89 98 Room Air 02/12/17 07:10 82 20 147/94 97 Room Air 02/12/17 07:07 82 20 147/94 97 Physical Exam GENERAL: Well-developed, dehydrated HEENT: Dry mucous membranes, pink conjunctiva, no cervical spine tenderness or step-off deformities, no goiter, no jaundice or icterus, extraocular movements intact without pain. No submandibular induration, and no pharyngeal erythema NEURO: Alert and oriented 3, cranial nerves II through XII intact bilaterally, pupils equal round reactive to light, no focal deficits or facial asymmetry, sensation intact distally Strength 5/5 in upper and lower extremities bilaterally CARDIAC: Regular rate and rhythm, no murmurs rubs or gallops LUNGS: Clear bilaterally no wheezing crackles or stridor ABDOMEN: Soft nontender, no guarding, no rigidity, no rebound, no psoas sign no obturator sign. Normoactive bowel sounds SKIN: Warm and dry to touch, no abrasions, contusions, or hematomas, no lacerations, no ecchymosis, no target lesions, and without ulcers EXTREMITIES: No clubbing cyanosis or edema, calves are bilaterally symmetrical, no Homans sign, no popliteal cord sign. Distal pulses equal and bilateral PSYCH: Normal affect without agitation or irritability Result Diagram: 02/12/1715 02/12/1715 Results 24 hrs Laboratory Tests Test 02/12/17 07:15 White Blood Count 12.610^3/ul Red Blood Count 4.1110^6/ul Hemoglobin 12.5g/dl Hematocrit 37.2% Mean Corpuscular Volume 90.5fl Mean Corpuscular Hemoglobin 30.4pg Mean Corpuscular Hemoglobin Concent 33.6g/dl Red Cell Distribution Width 12.7% Platelet Count 31395^3/UL Mean Platelet Volume 9.6fl Neutrophils % 89.6% Lymphocytes % 4.1% Monocytes % 5.6% Eosinophils % 0.0% Basophils % 0.2% Nucleated Red Blood Cells % 0.0/100WBC Neutrophils # 11.310^3/ul Lymphocytes # 0.510^3/ul Monocytes # 0.710^3/ul Eosinophils # 0.010^3/ul Basophils # 0.010^3/ul Nucleated Red Blood Cells # 0.010^3/ul Sodium Level 139mmol/L Potassium Level 3.6mmol/L Chloride Level 100mmol/L Carbon Dioxide Level 28mmol/L Anion Gap 15 Blood Urea Nitrogen 28mg/dl Creatinine 2.33mg/dl Glucose Level 208mg/dl Calcium Level 9.6mg/dl Total Bilirubin 0.6mg/dl Direct Bilirubin 0.00mg/dl Indirect Bilirubin 0.6mg/dl Aspartate Amino Transf (AST/SGOT) 18IU/L Alanine Aminotransferase (ALT/SGPT) 23IU/L Alkaline Phosphatase 115IU/L Troponin I < 0.012ng/ml Total Protein 8.4g/dl Albumin 4.6g/dl Globulin 3.80g/dl Albumin/Globulin Ratio 1.21 Lipase 60U/L Current Medications Medications (Trade) Dose Ordered Sig/Dasia Route PRN Reason Start Time Stop Time Status Last Admin Dose Admin Sodium Chloride (NS) 1,000 ml @ 1,000 mls/hr Q1H STAT IV 02/12/17 07:16 02/12/17 08:15 DC 02/12/17 07:29 Morphine Sulfate (morphine) 4 mg ONCE STAT IV 02/12/17 07:16 02/12/17 07:18 DC 02/12/17 07:29 Ondansetron HCl (Zofran Inj) 4 mg ONCE STAT IV 02/12/17 07:16 02/12/17 07:18 DC 02/12/17 07:28 Miscellaneous Medication (Gi Cocktail (2)) 40 ml ONCE STAT PO 02/12/17 07:16 02/12/17 07:18 DC 02/12/17 07:28 Belladonna/ Phenobarbital () 2 tab ONCE STAT PO 02/12/17 07:16 02/12/17 07:18 DC 02/12/17 07:29 Procedures/MDM IV line was established patient was placed on alarm security or surveillance monitor rhythm strip revealed a sinus rhythm at about 80 bpm with upright P and T waves. Patient was afebrile. EKG performed, read by me: 81 bpm, normal sinus rhythm, normal axis, no acute ST segment changes, narrow QRS complex, with good R-wave progression in precordial leads. One AP view of the chest performed, read by me reveals no acute infiltrates, normal mediastinum, sharp costophrenic and cardiac borders, no air under the diaphragm. Otherwise unremarkable chest x-ray. I administered 1 L normal saline intravenously, morphine 4 mg IV, Zofran 4 mg IV , GI cocktail 50 cc p.o. which he tolerated without difficulty. Patient had no episodes of vomiting while here. Gastrostomy tube was irrigated with normal saline there was no obvious coffee- ground contents or blood in the tube. Normal gastric contents were identified and no signs of active or recent bleeding was noted. CBC was unremarkable, electrolytes revealed kidney injury with a BUN/creatinine of 28/2.3, liver function tests are normal, troponin was negative. Differential diagnoses considered, included but not limited to acute coronary syndrome, pulmonary embolism, aortic dissection, abdominal aortic aneurysm, sepsis, stroke, meningitis, encephalitis, pneumonia, appendicitis, cholecystitis , bowel obstruction, pyelonephritis, nephrolithiasis, cystitis, as well as metabolic, hematologic, and electrolyte abnormalities. As well as abscess, cellulitis, fractures, and dislocations. Patient feels much better at this time, and vital signs are normal, symptoms have improved. I did give strict instructions to return to the ED if symptoms continue or worsen, patient will otherwise follow-up with primary care physician. Patient understood instructions and agreed to plan. Departure Diagnosis: Primary Impression: Gastritis Gastritis type: superficial Chronicity: acute Gastritis bleeding: without bleeding Qualified Code: K29.00 - Acute superficial gastritis without hemorrhage Additional Impressions: Vomiting Vomiting type: unspecified Vomiting Intractability: non-intractable Nausea presence: with nausea Qualified Code: R11.2 - Non-intractable vomiting with nausea, unspecified vomiting type Dehydration Condition: Good Patient Instructions: Gastritis Vs. Ulcer, Vomiting (6Y-Adult) ORQUIDEA KING MD February 12, 2017 08:05
[2017-02-12 08:13] LABS: TROPONIN-I < 0.012 ng/ml (0.00-0.12)
[2017-02-12 08:52] VITALS: BP 139/89; PULSE 69; RESP 15
== END 2017-02-12 09:23 | disposition home or self-care (01) ==
LOC: E/R 06:47
DX: K29.00 Acute gastritis without bleeding (principal); E86.0 Dehydration; N18.9 Chronic kidney disease, unspecified; Z85.21 Personal history of malignant neoplasm of larynx
CPT/HCPCS: 36415; 71010; 80053; 83690; 84484; 85025; 93005; 96374; 96375; J2270; J2405; J7030; Z7502; Z7610

== ENCOUNTER 2017-02-16 11:48 | Emergency (ER) | payer OTHER ==
[~2017-02-16] VITALS: Wt 75.0 kg
[~2017-02-16 11:48] MED LIST changes: +FAMO40TA52 PO; -LANS30CA GTB; +MAG355OR14 PO; +OMEP20CA16 G-TUBE; +ONDA4TAB8 PO
--- NOTE | 2017-02-16 13:26 | RADRPT ---
PROCEDURE: XR Abdomen. CLINICAL INDICATION: Check gastrostomy tube position. TECHNIQUE: AP supine abdomen x-ray. The image was performed following injection of 30 ml of Gastro grafin into the gastrostomy tube. COMPARISON: 09/26/2016. FINDINGS: The gastrostomy tube contains contrast and there is contrast in the stomach. There is no evidence of obstruction. There are no abnormal calcifications overlying the urinary tracts. The osseus structures are unremarkable. IMPRESSION: 1. The gastrostomy tube tip is in the stomach. RPTAT: QQ .Jason Tafoya MD, MD Date Time Electronically viewed and signed by .Jason Tafoya MD, on 02/16/2017 13:26 .R/
--- NOTE | 2017-02-16 13:27 | ERD ---
ER Documentation Chief Complaint Date/Time DATE: 02/16/17 TIME: 13:25 Chief Complaint g tube came out accidentally last night. no bleeding noted. needs replaced HPI Patient is a 56-year-old male with throat cancer who presents because his G- tube pulled out. He said that his G-tube pulled out last night and needs to be replaced. He uses it to get formula feeds. He denies any pain. He says "I think it is a size 10 or 16". He has a tube with him but there is no size listed on the tube. Upon review of old medical records the patient has multiple visits to the ER for various complaints. He does have a primary doctor. ROS All systems reviewed and are negative except as per history of present illness. Medications Home Meds Active Scripts Famotidine* (Famotidine*) 40 Mg Tablet, 40 MG PO DAILY, #30 TAB Prov:ORQUIDEA KING MD 02/12/17 Ondansetron Hcl* (Zofran*) 4 Mg Tablet, 4 MG PO Q6H Y for VOMITTING, #15 TAB Prov:ORQUIDEA KING MD 02/12/17 Mag Hydrox/Al Hydrox/Simeth (Maalox Advanced Suspension) 355 Ml Oral.susp, 2 TSP PO TID for PAIN, #24 OZ Prov:ORQUIDEA KING MD 02/12/17 Metoclopramide* (Reglan*) 10 Mg/10 Ml Soln, 5 MG GTB Q6 Y for NAUSEA AND/OR VOMITING, #150 ML Prov:ISRAEL GUILLEN MD 11/20/16 Reported Medications Omeprazole* (Omeprazole*) 20 Mg Capsule.dr, 40 MG G-TUBE DAILY, #30 CAP 02/12/17 Ascorbic Acid* (Vitamin C*) 500 Mg Capsule.sa, 500 MG PO DAILY, CAP 09/25/16 Multivitamins* (Once Daily*) 1 Tab Tablet, 1 TAB GTB DAILY, TAB 02/28/16 Vitamin B Complex* (Vitamin B Complex*) 1 Cap Capsule, 1 CAP GTB DAILY, CAP 02/28/16 Cholecalciferol* (Vitamin D3*) 1,000 Unit Tablet, 1000 UNIT G-TUBE DAILY, TAB 02/28/16 Bupropion Hcl* (Bupropion Hcl*) 75 Mg Tablet, 75 MG G-TUBE BID, TAB 09/18/15 Discontinued Reported Medications Lansoprazole* (Lansoprazole*) 30 Mg Capsule.dr, 30 MG GTB BID, CAP 01/14/15 Allergies Allergies: Coded Allergies: No Known Allergy (Verified , 02/16/17) PMhx/Soc History of Surgery: Yes Anesthesia Reaction: No Hx Neurological Disorder: No Hx Respiratory Disorders: No Hx Cardiac Disorders: No Hx Psychiatric Problems: No Hx Miscellaneous Medical Probl: Yes (throat CA) Hx Alcohol Use: No Hx Substance Use: No Hx Tobacco Use: No Smoking Status: Never smoker FmHx Family History: No diabetes Physical Exam Vitals Vital Signs Date Time Temp Pulse Resp B/P Pulse Ox O2 Delivery O2 Flow Rate FiO2 02/16/17 11:50 97.0 62 20 121/71 100 Physical Exam Const: No acute distress Head: Atraumatic Eyes: Normal Conjunctiva ENT: Normal External Ears, Nose and Mouth. Neck: Full range of motion..~ No meningismus. Resp: Clear to auscultation bilaterally Cardio: Regular rate and rhythm, no murmurs Abd: Soft, G-tube was pulled out of the site in the left upper quadrant Skin: G-tube site in the left upper quadrant Back: No midline or flank tenderness Ext: No cyanosis, or edema Neur: Awake and alert Psych: Normal Mood and Affect Procedures/MDM G-tube Insertion by me: Sterile technique, local prep and lubrication, time out performed. Location: Epigastrum Device: 18 Irish G-tube Technique: Jamison pressure with twisting motion. Balloon inflation Results: Gastric contents expressed. Compl: none, I initially tried a size 20 G-tube which was too large and therefore I decreased to a size 18 which did fit X-ray Abdomen 1V Interpreted by me: Free Air: None Bowel Gas: Nonspecific Contrast: Intraluminal Departure Diagnosis: Primary Impression: Encounter for gastrojejunal tube placement Condition: Fair Patient Instructions: Gastrostromy or Gastro-jejunum Tube: Care Referrals: Your doctor Additional Instructions: Call your primary care doctor TOMORROW for an appointment during the next 1 WEEK.Tell the medical records secretary that you were referred from this facility.See the doctor sooner or return here if your condition worsens before your appointment time. YESICA CONNELL MD February 16, 2017 13:27
== END 2017-02-16 13:14 | disposition home or self-care (01) ==
LOC: E/R 11:48
DX: K94.23 Gastrostomy malfunction (principal); Z85.819 Personal history of malignant neoplasm of unspecified site of lip, oral cavity, and pharynx
CPT/HCPCS: 74000

== ENCOUNTER 2017-04-25 07:49 | Emergency (ER) | payer OTHER ==
[~2017-04-25] VITALS: Ht 177.8 cm; Wt 77.0 kg
[2017-04-25 07:55] VITALS: Ht 177.8 cm; Wt 77.0 kg
[2017-04-25] MEDS ORDERED: SOD CHLORIDE 0.9% 1,000 ML IV STA (08:23)
[2017-04-25] MEDS ORDERED: morphine 4 MG/ML VIAL IV STA (08:23)
[2017-04-25] MEDS ORDERED: ONDANSETRON 4 MG INJ IV STA (08:23)
--- NOTE | 2017-04-25 08:33 | ERD ---
ER Documentation Chief Complaint Date/Time DATE: 04/25/17 TIME: 08:27 Chief Complaint ABD PAIN WITH VOMITING X 1 DAY HPI 56-year-old male with a history of laryngeal CA post radiation in the remote past, chronic kidney disease, anemia, depression, anxiety, ataxia, recurrent abdominal pain, nausea and vomiting presents to the ED complaining of a 2 day history of worsening, sharp, right greater than left lower quadrant pain with nausea and multiple episodes of nonbloody, nonbilious emesis. No hematemesis, hematochezia or melanotic stools. Denies diarrhea or constipation. No relieving or exacerbating factors. No ill contacts, recent travel or spelled food exposure. Denies dysuria, polyuria, hematuria or flank pain. No chest pain or palpitations. No shortness of breath or cough. No leg pain or swelling. No skin rash. No fevers, chills, anorexia or weight loss. ROS All systems reviewed and are negative except as per history of present illness. Medications Home Meds Reported Medications Omeprazole* (Omeprazole*) 20 Mg Capsule.dr, 40 MG G-TUBE DAILY, #30 CAP 02/12/17 Multivitamins* (Once Daily*) 1 Tab Tablet, 1 TAB GTB DAILY, TAB 02/28/16 Vitamin B Complex* (Vitamin B Complex*) 1 Cap Capsule, 1 CAP GTB DAILY, CAP 02/28/16 Cholecalciferol* (Vitamin D3*) 1,000 Unit Tablet, 1000 UNIT G-TUBE DAILY, TAB 02/28/16 Discontinued Reported Medications Ascorbic Acid* (Vitamin C*) 500 Mg Capsule.sa, 500 MG PO DAILY, CAP 09/25/16 Bupropion Hcl* (Bupropion Hcl*) 75 Mg Tablet, 75 MG G-TUBE BID, TAB 09/18/15 Discontinued Scripts Famotidine* (Famotidine*) 40 Mg Tablet, 40 MG PO DAILY, #30 TAB Prov:ORQUIDEA KING MD 02/12/17 Ondansetron Hcl* (Zofran*) 4 Mg Tablet, 4 MG PO Q6H Y for VOMITTING, #15 TAB Prov:ORQUIDEA KING MD 02/12/17 Mag Hydrox/Al Hydrox/Simeth (Maalox Advanced Suspension) 355 Ml Oral.susp, 2 TSP PO TID for PAIN, #24 OZ Prov:ORQUIDEA KING MD 02/12/17 Metoclopramide* (Reglan*) 10 Mg/10 Ml Soln, 5 MG GTB Q6 Y for NAUSEA AND/OR VOMITING, #150 ML Prov:ISRAEL GUILLEN MD 11/20/16 Allergies Allergies: Coded Allergies: No Known Allergy (Verified , 04/25/17) PMhx/Soc Reviewed in chart. As per HPI. History of Surgery: Yes Anesthesia Reaction: No Hx Neurological Disorder: No Hx Respiratory Disorders: No Hx Cardiac Disorders: No Hx Psychiatric Problems: No Hx Miscellaneous Medical Probl: Yes (throat CA) Hx Alcohol Use: No Hx Substance Use: No Hx Tobacco Use: No FmHx Reviewed in chart. Not relevant to presenting normal. No stroke or coronary artery disease Physical Exam Vitals Vital Signs Date Time Temp Pulse Resp B/P Pulse Ox O2 Delivery O2 Flow Rate FiO2 04/25/17 07:55 99.1 98 18 139/81 98 Physical Exam Const: Alert, moderate distress. Anxious Head: Atraumatic Eyes: Normal Conjunctiva ENT: Normal External Ears, Nose and Mouth. Neck: Full range of motion. Nontender. Cardio: Regular rate and rhythm, no murmurs Abd: Soft, moderate right greater than left lower quadrant tenderness. No rebound or guarding. G-tube site clean without erythema, induration or drainage per Skin: No petechiae or rashes Back: No midline or flank tenderness Ext: No cyanosis, or edema Neur: Awake and alert. No focal deficit Psych: Appears anxious but not depressed Result Diagram: 04/25/17 0842 04/25/17 0842 Results 24 hrs Laboratory Tests Test 04/25/17 08:42 04/25/17 10:30 White Blood Count 13.210^3/ul Red Blood Count 3.9910^6/ul Hemoglobin 12.3g/dl Hematocrit 36.7% Mean Corpuscular Volume 92.0fl Mean Corpuscular Hemoglobin 30.8pg Mean Corpuscular Hemoglobin Concent 33.5g/dl Red Cell Distribution Width 13.1% Platelet Count 18949^3/UL Mean Platelet Volume 9.6fl Neutrophils % 90.0% Lymphocytes % 3.6% Monocytes % 5.6% Eosinophils % 0.1% Basophils % 0.2% Nucleated Red Blood Cells % 0.0/100WBC Neutrophils # 11.910^3/ul Lymphocytes # 0.510^3/ul Monocytes # 0.710^3/ul Eosinophils # 0.010^3/ul Basophils # 0.010^3/ul Nucleated Red Blood Cells # 0.010^3/ul Sodium Level 137mmol/L Potassium Level 3.8mmol/L Chloride Level 100mmol/L Carbon Dioxide Level 26mmol/L Anion Gap 15 Blood Urea Nitrogen 30mg/dl Creatinine 2.32mg/dl Glucose Level 174mg/dl Calcium Level 9.8mg/dl Total Bilirubin 0.6mg/dl Direct Bilirubin 0.00mg/dl Indirect Bilirubin 0.6mg/dl Aspartate Amino Transf (AST/SGOT) 20IU/L Alanine Aminotransferase (ALT/SGPT) 25IU/L Alkaline Phosphatase 96IU/L Total Protein 8.3g/dl Albumin 5.1g/dl Globulin 3.20g/dl Albumin/Globulin Ratio 1.59 Lipase 48U/L Urine Color YESY Urine Clarity TURBID Urine pH 5.0 Urine Specific [place] 1.010 Urine Ketones NEGATIVEmg/dL Urine Nitrite NEGATIVEmg/dL Urine Bilirubin NEGATIVEmg/dL Urine Urobilinogen NEGATIVEmg/dL Urine Leukocyte Esterase 2+Ye/ul Urine Microscopic RBC 55/HPF Urine Microscopic WBC 20/HPF Urine Squamous Epithelial Cells FEW/HPF Urine Amorphous Crystals FEW/HPF Urine Bacteria FEW/HPF Urine Hemoglobin 3+mg/dL Urine Glucose 1+mg/dL Urine Total Protein NEGATIVEmg/dl Current Medications Medications (Trade) Dose Ordered Sig/Dasia Route PRN Reason Start Time Stop Time Status Last Admin Dose Admin Sodium Chloride (NS) 1,000 ml @ 1,000 mls/hr Q1H STAT IV 04/25/17 08:23 04/25/17 09:22 DC 04/25/17 08:38 Morphine Sulfate (morphine) 4 mg ONCE STAT IV 04/25/17 08:23 04/25/17 08:24 DC 04/25/17 08:38 Ondansetron HCl (Zofran Inj) 4 mg ONCE STAT IV 04/25/17 08:23 04/25/17 08:25 DC 04/25/17 08:38 Metoclopramide HCl (Reglan) 10 mg ONCE ONCE IV 04/25/17 09:30 04/25/17 09:31 DC 04/25/17 09:41 Diphenhydramine HCl (Benadryl) 25 mg ONCE ONCE IV 04/25/17 09:30 04/25/17 09:31 DC 04/25/17 09:41 PROCEDURE: CT Abdomen and Pelvis without contrast. CLINICAL INDICATION: Abdominal pain. Vomiting. TECHNIQUE: CT scan of the abdomen and pelvis without contrast was performed on a multi-slice CT scanner without intravenous contrast. Coronal and sagittal reformatted images were obtained from the axial source images. Images were reviewed on a high-resolution PACS workstation. One or more of the following does reduction techniques were used: Automated exposure control; adjustment of the mA and/or kV according to patient size; use of the aorta of reconstruction technique. The total exam CTDI equals 8.3 mGy and the total exam DLP equals 507.09 mGy-cm. COMPARISON: CT abdomen pelvis 11/17/2016. FINDINGS: There is mild bibasilar atelectasis and/or scarring. There is moderate to marked thickening of the distal esophagus. This finding was present on prior study. Heart size is within normal limits. There is no pericardial thickening or pericardial effusion. A gastrostomy tube is in place with distal tip in the body of the stomach. The liver, spleen, and pancreas are normal given limitations of a noncontrast CT examination. The gallbladder is under distended.. There is mild nodularity of the left adrenal gland which is stable compared to prior study and likely benign. The adrenal glands are otherwise normal. The kidneys without renal calculus or hydronephrosis. The aorta is of normal caliber. Atherosclerotic vascular calcifications are present. There is no retroperitoneal lymph node enlargment. There is no evidence of large or small bowel obstruction. A normal appendix is identified. No free fluid or fluid collections are identified. No inflammatory changes are seen. No enlarged pelvic sidewall lymph nodes are seen. The bladder is within normal limits. No free fluid is identified. There are small bilateral inguinal hernias containing only fat. The bones are intact. IMPRESSION: 1. Moderate to marked thickening of the distal esophagus. While acute esophagitis could have this appearance, this finding was likely present on CT and is concerning for neoplasm. Recommend further evaluation with endoscopy. 2. No CT evidence of acute intra-abdominal or pelvic process. 3. Small bilateral inguinal hernias containing only fat. 4. Atherosclerotic vascular disease. RPTAT: KK .Con Blackmon MD, MD Date Time Electronically viewed and signed by .Con Blackmon MD, on 2016 09:29 .B/ Procedures/MDM DOCUMENTS REVIEWED: ED nurse, prior ED, prior records. Most recently admitted for similar symptoms in November 2016 ED COURSE: [] REEXAMINATION/REEVALUATION: Time: 09:25. Pain decreased but still with nausea and vomiting. Reglan 10 mg/Benadryl 25 mg ordered. TIME: 11:00. Doing well. Tolerating PO's. No nausea or vomiting. Abdomen soft nontender. [employer] DECISION MAKIN-year-old male with a history of laryngeal CA post radiation in the remote past, chronic kidney disease, anemia, depression, anxiety, ataxia, recurrent abdominal pain, nausea and vomiting presents to the ED complaining of a 2 day history of worsening, sharp, right greater than left lower quadrant pain with nausea and multiple episodes of nonbloody, nonbilious emesis. The patient has had a long history of similar symptoms with multiple ED visits but states that this pain is worse and because of this a CT was again performed despite the fact that he has had 8 CAT scans of the abdomen and pelvis since October 2014 and a abdominal MRI September 2016. Multiple endoscopies most recently September 2016 which revealed esophagitis and gastritis and was negative for H. pylori and malignancy. Repeat CT today reveals no evidence of an acute intra-abdominal process including but not limited to obstruction, mesenteric ischemia, neoplasm, appendicitis and diverticulitis. Symptoms resolved with intravenous hydration, antiemetics and analgesics. Abdominal pain of uncertain etiology but is chronic and recurrent. Stable chronic kidney disease. Urinary tract infection without evidence of pyelonephritis or evidence of obstructive uropathy. Stable for discharge with oral antibiotics, analgesics, antiemetics, precautionary instructions and outpatient follow-up as counseled per Counseled patient regarding diagnostic workup, diagnosis and need for followup. Understands to return to ED if symptoms recur, worsen or any other concerns. Departure Diagnosis: Primary Impression: Acute generalized abdominal pain Additional Impressions: Nausea & vomiting Vomiting type: unspecified Vomiting Intractability: unspecified Qualified Code: R11.2 - Nausea and vomiting, intractability of vomiting not specified, unspecified vomiting type CKD (chronic kidney disease) Chronic kidney disease stage: unspecified stage Qualified Code: N18.9 - CKD (chronic kidney disease), unspecified stage UTI (urinary tract infection) Urinary tract infection type: site unspecified Hematuria presence: with hematuria Qualified Code: N39.0 - Urinary tract infection with hematuria, site unspecified H/O laryngeal cancer G tube feedings Condition: Serious SALOMÓN CELESTIN MD Apr 25, 2017 08:33
[2017-04-25 09:05] LABS: ADD SCAN DIFF NO
[2017-04-25 09:07] LABS: ABNORMAL IP MESSAGE 1; BASOPHILS % 0.2 % (0.0-2.0); EOSINOPHILS % 0.1 % (0.0-7.0); HEMATOCRIT 36.7 % (42.0-52.0); HEMOGLOBIN 12.3 g/dl (14.0-18.0); LYMPHOCYTES # 0.5 10^3/ul (0.8-2.9); LYMPHOCYTES % 3.6 % (15.0-51.0); MEAN CORPUSCULAR HEMOGLOBIN 30.8 pg (29.0-33.0); MEAN CORPUSCULAR HGB CONC 33.5 g/dl (32.0-37.0); MEAN PLATELET VOLUME 9.6 fl (7.4-10.4); MONOCYTE # 0.7 10^3/ul (0.3-0.9); MONOCYTES % 5.6 % (0.0-11.0); NEUTROPHIL # 11.9 10^3/ul (1.6-7.5); PLATELET COUNT 273 10^3/UL (140-415); RED BLOOD COUNT 3.99 10^6/ul (4.70-6.10); RED CELL DISTRIBUTION WIDTH 13.1 % (11.5-14.5); WHITE BLOOD COUNT 13.2 10^3/ul (4.8-10.8)
[2017-04-25] MEDS ORDERED: METOCLOPRAMIDE 10 MG INJ IV ONE (09:30)
[2017-04-25] MEDS ORDERED: DIPHENHYDRAMINE 50 MG INJ IV ONE (09:30)
--- NOTE | 2017-04-25 09:30 | RADRPT ---
PROCEDURE: CT Abdomen and Pelvis without contrast. CLINICAL INDICATION: Abdominal pain. Vomiting. TECHNIQUE: CT scan of the abdomen and pelvis without contrast was performed on a multi-slice CT [facility] without intravenous contrast. Coronal and sagittal reformatted images were obtained from the axial source images. Images were reviewed on a high-resolution PACS workstation. One or more of the following does reduction techniques were used: Automated exposure control; adjustment of the mA an d/or kV according to patient size; use of the aorta of reconstruction technique. The total exam CTD I equals 8.3 mGy and the total exam DLP equals 507.09 mGy-cm. COMPARISON: CT abdomen pelvis 11/17/2016. FINDINGS: There is mild bibasilar atelectasis and/or scarring. There is moderate to marked thickening of the distal esophagus. This finding was present on prior study. Heart size is within normal limits. Th ere is no pericardial thickening or pericardial effusion. A gastrostomy tube is in place with dista l tip in the body of the stomach. The liver, spleen, and pancreas are normal given limitations of a noncontrast CT examination. The g allbladder is under distended.. There is mild nodularity of the left adrenal gland which is stable compared to prior study and likel y benign. The adrenal glands are otherwise normal. The kidneys without renal calculus or hydroneph rosis. The aorta is of normal caliber. Atherosclerotic vascular calcifications are present. There is no re troperitoneal lymph node enlargment. There is no evidence of large or small bowel obstruction. A normal appendix is identified. No juan e fluid or fluid collections are identified. No inflammatory changes are seen. No enlarged pelvic sidewall lymph nodes are seen. The bladder is within normal limits. No free fl uid is identified. There are small bilateral inguinal hernias containing only fat. The bones are intact. IMPRESSION: 1. Moderate to marked thickening of the distal esophagus. While acute esophagitis could have this appearance, this finding was likely present on CT 11/17/2016 and is concerning for neoplasm. Recomm end further evaluation with endoscopy. 2. No CT evidence of acute intra-abdominal or pelvic process. 3. Small bilateral inguinal hernias containing only fat. 4. Atherosclerotic vascular disease. RPTAT: KK .Con Blackmon MD, MD Date Time Electronically viewed and signed by .Con Blackmon MD, MD on 04/25/2017 09:29 .B/
[2017-04-25 09:32] LABS: ALBUMIN 5.1 g/dl (3.3-4.9); ALBUMIN/GLOBULIN RATIO 1.59; BILIRUBIN,INDIRECT 0.6 mg/dl (0-1.1); BILIRUBIN,TOTAL 0.6 mg/dl (0.2-1.3); CALCIUM 9.8 mg/dl (8.4-10.2); CREATININE 2.32 mg/dl (0.61-1.24); POTASSIUM 3.8 mmol/L (3.5-5.1); TOTAL PROTEIN 8.3 g/dl (6.1-8.1)
[2017-04-25 10:48] LABS: ADD UMIC YES; UR AMORPHOUS CRYSTAL FEW /HPF (NONE SEEN); UR ASCORBIC ACID NEGATIVE (NEGATIVE); UR BACTERIA FEW /HPF (NONE SEEN); UR BILIRUBIN (Dip) NEGATIVE (NEGATIVE); UR BLOOD (Dip) 3+ mg/dL (NEGATIVE); UR CLARITY TURBID (CLEAR); UR COLOR AMBER (YELLOW); UR GLUCOSE (Dip) 1+ mg/dL (NEGATIVE); UR KETONES (Dip) NEGATIVE (NEGATIVE); UR LEUKOCYTE ESTERASE (Dip) 2+ Leu/ul (NEGATIVE); UR NITRITE (Dip) NEGATIVE (NEGATIVE); UR RBC 55 /HPF (0-5); UR SQUAMOUS EPITHELIAL CELL FEW /HPF (FEW); UR TOTAL PROTEIN (Dip) NEGATIVE (NEGATIVE); UR UROBILINOGEN (Dip) NEGATIVE (NEGATIVE)
[2017-04-25] MEDS ORDERED: CIPR500T4 PO (11:20)
[2017-04-25] MEDS ORDERED: ONDA4TAB14 PO (11:20)
[2017-04-25] MEDS ORDERED: TRAM50TA2 PO (11:20)
[2017-04-25] MEDS ORDERED: METO10TA92 PO (11:20)
[2017-04-25 11:30] VITALS: BP 144/56; PULSE 86; RESP 20; TEMP 98.6
== END 2017-04-25 11:52 | disposition home or self-care (01) ==
LOC: E/R 07:49
DX: R10.84 Generalized abdominal pain (principal); R11.2 Nausea with vomiting, unspecified; N18.9 Chronic kidney disease, unspecified; N39.0 Urinary tract infection, site not specified; Z85.21 Personal history of malignant neoplasm of larynx; Z93.1 Gastrostomy status
CPT/HCPCS: 74176; 80053; 81001; 83690; 85025; J1200; J2270; J2405; J2765; J7030; 36415; 96374; 96375

== ENCOUNTER 2017-08-16 16:34 | Emergency (ER) | payer OTHER ==
[~2017-08-16] VITALS: Wt 75.0 kg
[~2017-08-16 16:34] MED LIST changes: -ASCO500C7 PO; -BUPR75TA9 G-TUBE; +CIPR500T4 PO; -FAMO40TA52 PO; -MAG355OR14 PO; +METO10TA92 PO; +ONDA4TAB14 PO; -ONDA4TAB8 PO; +TRAM50TA2 PO; -UDREG GTB
--- NOTE | 2017-08-16 17:14 | ERD ---
ER Documentation Chief Complaint Chief Complaint ABD PAIN, VOMITING, MULTIPLE HOSPITAL VISITS WITH SAME S/S HPI 57-year-old man with a history of laryngeal CA and chronic recurrent abdominal pain presents with abdominal cramping and a few episodes of clear nonbloody nonbilious emesis today. States his abdominal pain is similar to previous episodes. He has had no hematemesis, no blood per rectum or melena, no fevers or chills, no recent weight loss, no chest pain or shortness of breath. ROS All systems reviewed and are negative except as per history of present illness. Medications Home Meds Active Scripts Ondansetron (Ondansetron Odt) 4 Mg Tab.rapdis, 4 MG PO TID Y for NAUSEA AND/OR VOMITING, #10 TAB Prov:ORQUIDEA KING MD 08/16/17 Oxycodone HCl/Acetaminophen (Percocet 5-325 mg Tablet) 1 Each Tablet, 1 EACH PO TID for PAIN, #9 TAB Prov:ORQUIDEA KING MD 08/16/17 Reported Medications Lansoprazole* (Lansoprazole*) 30 Mg Capsule.dr, 30 MG PO DAILY, CAP 08/16/17 Discontinued Reported Medications Omeprazole* (Omeprazole*) 20 Mg Capsule.dr, 40 MG G-TUBE DAILY, #30 CAP 02/12/17 Multivitamins* (Once Daily*) 1 Tab Tablet, 1 TAB GTB DAILY, TAB 02/28/16 Vitamin B Complex* (Vitamin B Complex*) 1 Cap Capsule, 1 CAP GTB DAILY, CAP 02/28/16 Cholecalciferol* (Vitamin D3*) 1,000 Unit Tablet, 1000 UNIT G-TUBE DAILY, TAB 02/28/16 Discontinued Scripts Tramadol HCl (Tramadol HCl) 50 Mg Tablet, 50 MG PO Q6 Y for PAIN, #12 TAB Prov:SALOMÓN CELESTIN MD 04/25/17 Ciprofloxacin Hcl* (Ciprofloxacin Hcl*) 500 Mg Tablet, 500 MG PO BID for 7 Days , TAB Prov:SALOMÓN CELESTIN MD 04/25/17 Ondansetron (Ondansetron Odt) 4 Mg Tab.rapdis, 4 MG PO Q6H Y for NAUSEA AND/OR VOMITING, #10 TAB Prov:SALOMÓN CELESTIN MD 04/25/17 Metoclopramide* (Reglan*) 10 Mg Tablet, 10 MG PO Q6 Y for NAUSEA AND/OR VOMITING , #10 TAB Prov:SALOMÓN CELESTIN MD 04/25/17 Allergies Allergies: Coded Allergies: No Known Allergy (Verified , 08/16/17) PMhx/Soc Laryngeal CA post radiation in the remote past, chronic kidney disease, anemia, depression, anxiety, ataxia, recurrent abdominal pain, nausea and vomiting History of Surgery: Yes (g tube ) Anesthesia Reaction: No 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) Hx Respiratory Disorders: No Hx Cardiac Disorders: No Hx Psychiatric Problems: No Hx Miscellaneous Medical Probl: Yes (throat CA, gastritis) Hx Alcohol Use: Yes (former) Hx Substance Use: No Hx Tobacco Use: Yes FmHx Family History: No diabetes Physical Exam Vitals Vital Signs Date Time Temp Pulse Resp B/P Pulse Ox O2 Delivery O2 Flow Rate FiO2 08/16/17 19:52 80 18 128/82 100 Room Air 08/16/17 16:41 96.6 106 18 144/93 98 Physical Exam GENERAL: Well-developed, well-nourished, appears dehydrated, afebrile HEENT: Moist mucous membranes, pink conjunctiva, no cervical spine tenderness or step-off deformities, no goiter, no jaundice or icterus, extraocular movements intact without pain. No submandibular induration, and no pharyngeal erythema NEURO: Alert and oriented 3, cranial nerves II through XII intact bilaterally, pupils equal round reactive to light, no focal deficits or facial asymmetry, sensation intact distally Strength 5/5 in upper and lower extremities bilaterally CARDIAC: Regular rate and rhythm, no murmurs rubs or gallops LUNGS: Clear bilaterally no wheezing crackles or stridor ABDOMEN: Soft nontender, no guarding, no rigidity, no rebound, no psoas sign no obturator sign. SKIN: Warm and dry to touch, no abrasions, contusions, or hematomas, no lacerations, no ecchymosis, no target lesions, and without ulcers EXTREMITIES: No clubbing cyanosis or edema, calves are bilaterally symmetrical, no Homans sign, no popliteal cord sign. Distal pulses equal and bilateral PSYCH: Normal affect without agitation or irritability Result Diagram: 08/16/17 1721 08/16/17 1721 Results 24 hrs Laboratory Tests Test 08/16/17 17:21 White Blood Count 14.410^3/ul Red Blood Count 4.5210^6/ul Hemoglobin 13.9g/dl Hematocrit 42.0% Mean Corpuscular Volume 92.9fl Mean Corpuscular Hemoglobin 30.8pg Mean Corpuscular Hemoglobin Concent 33.1g/dl Red Cell Distribution Width 12.5% Platelet Count 84388^3/UL Mean Platelet Volume 9.6fl Neutrophils % 88.3% Lymphocytes % 5.1% Monocytes % 5.9% Eosinophils % 0.1% Basophils % 0.3% Nucleated Red Blood Cells % 0.0/100WBC Neutrophils # 12.710^3/ul Lymphocytes # 0.710^3/ul Monocytes # 0.910^3/ul Eosinophils # 0.010^3/ul Basophils # 0.110^3/ul Nucleated Red Blood Cells # 0.010^3/ul Sodium Level 146mmol/L Potassium Level 3.7mmol/L Chloride Level 95mmol/L Carbon Dioxide Level 33mmol/L Anion Gap 22 Blood Urea Nitrogen 29mg/dl Creatinine 2.70mg/dl Glucose Level 152mg/dl Calcium Level 10.0mg/dl Total Bilirubin 0.5mg/dl Direct Bilirubin 0.00mg/dl Indirect Bilirubin 0.5mg/dl Aspartate Amino Transf (AST/SGOT) 27IU/L Alanine Aminotransferase (ALT/SGPT) 18IU/L Alkaline Phosphatase 107IU/L Total Protein 9.3g/dl Albumin 5.0g/dl Globulin 4.30g/dl Albumin/Globulin Ratio 1.16 Lipase 54U/L Current Medications Medications (Trade) Dose Ordered Sig/Dasia Route PRN Reason Start Time Stop Time Status Last Admin Dose Admin Sodium Chloride (NS) 1,000 ml @ 1,000 mls/hr Q1H STAT IV 08/16/17 17:57 08/16/17 18:56 DC 08/16/17 18:20 Ondansetron HCl (Zofran Inj) 4 mg ONCE STAT IV 08/16/17 17:57 08/16/17 17:58 DC 08/16/17 18:22 Procedures/[facility] IV line was established patient was placed on stereoplotter operator rhythm strip revealed a sinus rhythm at about 80 bpm with upright P and T waves. Patient was afebrile I administered 1 L of normal saline intravenously and Zofran 4 mg IV for nausea although he had no episodes of vomiting while here. I reviewed patient's previous CT scans of the abdomen and pelvis, and previous workups. CBC revealed a mild leukocytosis otherwise unremarkable, electrolytes revealed kidney injury although his creatinine has not significantly changed, liver function tests were unremarkable. Patient states his nausea has resolved and his workup here was unremarkable, we will defer CT scan imaging for the time being although I did tell him and his real estate developer who was at the bedside to return in 8 hours for repeat abdominal examination and reevaluation or earlier should he develop a fever, abdominal pain, or continued vomiting. Differential diagnoses considered, included but not limited to acute coronary syndrome, pulmonary embolism, aortic dissection, abdominal aortic aneurysm, sepsis, stroke, meningitis, encephalitis, pneumonia, appendicitis, cholecystitis , bowel obstruction, pyelonephritis, nephrolithiasis, cystitis, as well as metabolic, hematologic, and electrolyte abnormalities. As well as abscess, cellulitis, fractures, and dislocations. Patient feels much better at this time, and vital signs are normal, symptoms have improved. I did give strict instructions to return to the ED if symptoms continue or worsen, patient will otherwise follow-up with primary care physician. Patient understood instructions and agreed to plan. Disclaimer: Inadvertent spelling and grammatical errors are likely due to EHR/ dictation software use and do not reflect on the overall quality of patient care. Also, please note that the electronic time recorded on this note does not necessarily reflect the actual time of the patient encounter. Departure Diagnosis: Primary Impression: Abdominal pain Abdominal location: generalized Qualified Code: R10.84 - Generalized abdominal pain Additional Impressions: Chronic pain Chronic pain type: chronic pain syndrome Qualified Code: G89.4 - Chronic pain syndrome Vomiting Vomiting type: unspecified Vomiting Intractability: non-intractable Nausea presence: with nausea Qualified Code: R11.2 - Non-intractable vomiting with nausea, unspecified vomiting type Dehydration Condition: ORQUIDEA Puga MD Aug 16, 2017 17:14
[2017-08-16] MEDS ORDERED: ONDANSETRON 4 MG INJ IV STA (17:57)
[2017-08-16] MEDS ORDERED: SOD CHLORIDE 0.9% 1,000 ML IV STA (17:57)
[2017-08-16] MEDS ORDERED: LANS30CA PO (18:40)
[2017-08-16] MEDS ORDERED: OXYC-279 PO (19:17)
[2017-08-16] MEDS ORDERED: ONDA4TAB14 PO (19:17)
[2017-08-16 19:52] VITALS: BP 128/82; PULSE 80; RESP 18
== END 2017-08-16 19:52 | disposition home or self-care (01) ==
LOC: E/R 16:34
DX: R10.84 Generalized abdominal pain (principal); G89.4 Chronic pain syndrome; E86.0 Dehydration; N18.9 Chronic kidney disease, unspecified; R40.2142 Coma scale, eyes open, spontaneous, at arrival to emergency department; R40.2252 Coma scale, best verbal response, oriented, at arrival to emergency department; R40.2362 Coma scale, best motor response, obeys commands, at arrival to emergency department; Z85.21 Personal history of malignant neoplasm of larynx; Z87.891 Personal history of nicotine dependence
CPT/HCPCS: 36415; 80053; 83690; 85025; 96374; J2405; J7030; Z7502

== ENCOUNTER 2017-08-22 12:04 | Inpatient (IN) | payer OTHER ==
[~2017-08-22] VITALS: Ht 170.2 cm; Wt 71.4 kg
[~2017-08-22 12:04] MED LIST changes: -CHOL100062 G-TUBE; -CIPR500T4 PO; +LANS30CA PO; -METO10TA92 PO; -MULT-552 GTB; -OMEP20CA16 G-TUBE; +OXYC-279 PO; -TRAM50TA2 PO; -VITA1CAP38 GTB
[2017-08-22] MEDS ORDERED: ONDANSETRON 4 MG INJ IV STA (13:48)
[2017-08-22] MEDS ORDERED: SOD CHLORIDE 0.9% 1,000 ML IV STA (13:48)
[2017-08-22 14:27] LABS: BASOPHIL # 0.1 10^3/ul (0.0-0.1); BASOPHILS % 0.7 % (0.0-2.0); EOSINOPHILS % 0.5 % (0.0-7.0); HEMATOCRIT 27.4 % (42.0-52.0); HEMOGLOBIN 9.4 g/dl (14.0-18.0); LYMPHOCYTES % 13.2 % (15.0-51.0); MEAN CORPUSCULAR HGB CONC 34.3 g/dl (32.0-37.0); MEAN CORPUSCULAR VOLUME 90.4 fl (82.0-101.0); MEAN PLATELET VOLUME 9.2 fl (7.4-10.4); MONOCYTE # 0.8 10^3/ul (0.3-0.9); MONOCYTES % 10.2 % (0.0-11.0); NEUTROPHIL # 5.7 10^3/ul (1.6-7.5); NEUTROPHILS % 74.9 % (39.0-77.0); PLATELET COUNT 295 10^3/UL (140-415); RED BLOOD COUNT 3.03 10^6/ul (4.70-6.10); RED CELL DISTRIBUTION WIDTH 12.7 % (11.5-14.5); WHITE BLOOD COUNT 7.6 10^3/ul (4.8-10.8)
--- NOTE | 2017-08-22 14:45 | RADRPT ---
PROCEDURE: Chest x-ray CLINICAL INDICATION: Aspiration TECHNIQUE: Chest single view COMPARISON: 02/12/2017 FINDINGS: The heart is normal in size. The pulmonary vessels are normal in caliber. There is new area patchy consolidation left lower lobe consistent with an evolving pneumonia. Given the lower lobe distribut ion, this likely represents aspiration pneumonia. Right lung is clear. Costophrenic angles are sharp . IMPRESSION: 1. New evolving left lower lobe pneumonia RPTAT: HH .Arben Johnston MD, Date Time Electronically viewed and signed by .Arben Johnston MD, on 08/22/2017 14:45 .W/
[2017-08-22 14:47] LABS: ALBUMIN 3.4 g/dl (3.3-4.9); ALBUMIN/GLOBULIN RATIO 0.97; BILIRUBIN,INDIRECT 0.4 mg/dl (0-1.1); BILIRUBIN,TOTAL 0.4 mg/dl (0.2-1.3); CALCIUM 8.7 mg/dl (8.4-10.2); CREATININE 2.83 mg/dl (0.61-1.24); POTASSIUM 3.3 mmol/L (3.5-5.1); TOTAL PROTEIN 6.9 g/dl (6.1-8.1)
[2017-08-22] MEDS ORDERED: CEFEPIME 2GM/50 ML (PMX) 50 ML IVPB STA (15:57)
[2017-08-22] MEDS ORDERED: VANCOMYCIN 1 GM (PMX) 250 ML IVPB STA (15:57)
--- NOTE | 2017-08-22 16:34 | ERD ---
ER Documentation Chief Complaint Chief Complaint sent by clinic for URI, vomiting, dehydration. also asking to replace gtub HPI 57-year-old male with a history of laryngeal cancer status post chemotherapy, chronic kidney disease, chronic abdominal pain with intractable nausea and vomiting status post G-tube placement, depression and anxiety presents to the ED for evaluation of 1 week history of worsening congestion, cough productive of dark sputum with worsening postprandial vomiting. Patient feels as though food is getting stuck in his throat. Going to the clinic notes patient's has chronic slurred speech but this seems to be worse than usual. Relies weakness but no focal weakness or numbness. Generalized, crampy, nonradiating abdominal pain. No relieving or exacerbating factors. Denies dysuria, polyuria or hematuria. No fevers or chills. ROS All systems reviewed and are negative except as per history of present illness. Medications Home Meds Reported Medications Lansoprazole* (Lansoprazole*) 30 Mg Capsule.dr, 30 MG PO DAILY, CAP 08/16/17 Discontinued Reported Medications Omeprazole* (Omeprazole*) 20 Mg Capsule.dr, 40 MG G-TUBE DAILY, #30 CAP 02/12/17 Multivitamins* (Once Daily*) 1 Tab Tablet, 1 TAB GTB DAILY, TAB 02/28/16 Vitamin B Complex* (Vitamin B Complex*) 1 Cap Capsule, 1 CAP GTB DAILY, CAP 02/28/16 Cholecalciferol* (Vitamin D3*) 1,000 Unit Tablet, 1000 UNIT G-TUBE DAILY, TAB 02/28/16 Discontinued Scripts Ondansetron (Ondansetron Odt) 4 Mg Tab.rapdis, 4 MG PO TID Y for NAUSEA AND/OR VOMITING, #10 TAB Prov:ORQUIDEA KING MD 08/16/17 Oxycodone HCl/Acetaminophen (Percocet 5-325 mg Tablet) 1 Each Tablet, 1 EACH PO TID for PAIN, #9 TAB Prov:ORQUIDEA KING MD 08/16/17 Tramadol HCl (Tramadol HCl) 50 Mg Tablet, 50 MG PO Q6 Y for PAIN, #12 TAB Prov:SALOMÓN CELESTIN MD 04/25/17 Ciprofloxacin Hcl* (Ciprofloxacin Hcl*) 500 Mg Tablet, 500 MG PO BID for 7 Days , TAB Prov:SALOMÓN CELESTIN MD 04/25/17 Ondansetron (Ondansetron Odt) 4 Mg Tab.rapdis, 4 MG PO Q6H Y for NAUSEA AND/OR VOMITING, #10 TAB Prov:SALOMÓN CELESTIN MD 04/25/17 Metoclopramide* (Reglan*) 10 Mg Tablet, 10 MG PO Q6 Y for NAUSEA AND/OR VOMITING , #10 TAB Prov:SALOMÓN CELESTIN MD 04/25/17 Allergies Allergies: Coded Allergies: No Known Allergy (Verified , 08/22/17) PMhx/Soc Reviewed in chart. As per HPI. 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 Head: Atraumatic Eyes: Normal Conjunctiva ENT: Normal External Ears, Nose and Mouth. Neck: Full range of motion. No JVD Resp: Diminished at the left base with scattered crackles but no expiratory wheezing. Cardio: Regular rate and rhythm, no murmurs Abd: Soft, mild, diffuse, tenderness without rebound or guarding. No masses. Left upper quadrant G-tube with mild surrounding erythema and induration but no purulent drainage. Skin: No petechiae or rashes Back: No midline or flank tenderness Ext: No cyanosis, or edema Neur: Awake and alert Psych: Normal Mood and Affect Result Diagram: 08/22/17 1410 08/22/17 1410 Results 24 hrs Laboratory Tests Test 08/22/17 14:10 White Blood Count 7.610^3/ul Red Blood Count 3.0310^6/ul Hemoglobin 9.4g/dl Hematocrit 27.4% Mean Corpuscular Volume 90.4fl Mean Corpuscular Hemoglobin 31.0pg Mean Corpuscular Hemoglobin Concent 34.3g/dl Red Cell Distribution Width 12.7% Platelet Count 79318^3/UL Mean Platelet Volume 9.2fl Neutrophils % 74.9% Lymphocytes % 13.2% Monocytes % 10.2% Eosinophils % 0.5% Basophils % 0.7% Nucleated Red Blood Cells % 0.0/100WBC Neutrophils # 5.710^3/ul Lymphocytes # 1.010^3/ul Monocytes # 0.810^3/ul Eosinophils # 0.010^3/ul Basophils # 0.110^3/ul Nucleated Red Blood Cells # 0.010^3/ul Sodium Level 130mmol/L Potassium Level 3.3mmol/L Chloride Level 84mmol/L Carbon Dioxide Level 35mmol/L Anion Gap 14 Blood Urea Nitrogen 50mg/dl Creatinine 2.83mg/dl Glucose Level 94mg/dl Calcium Level 8.7mg/dl Total Bilirubin 0.4mg/dl Direct Bilirubin 0.00mg/dl Indirect Bilirubin 0.4mg/dl Aspartate Amino Transf (AST/SGOT) 28IU/L Alanine Aminotransferase (ALT/SGPT) 33IU/L Alkaline Phosphatase 89IU/L Total Protein 6.9g/dl Albumin 3.4g/dl Globulin 3.50g/dl Albumin/Globulin Ratio 0.97 Lipase 51U/L Current Medications Medications (Trade) Dose Ordered Sig/Dasia Route PRN Reason Start Time Stop Time Status Last Admin Dose Admin Sodium Chloride (NS) 1,000 ml @ 1,000 mls/hr Q1H STAT IV 08/22/17 13:48 08/22/17 14:47 DC 08/22/17 13:48 Ondansetron HCl 4 mg 4 mg ONCE STAT IV 08/22/17 13:48 08/22/17 13:51 DC 08/22/17 13:48 Vancomycin HCl 250 ml @ 125 mls/hr ONCE STAT IVPB 08/22/17 15:57 08/22/17 17:56 08/22/17 16:06 Cefepime HCl (Maxipime 2gm/50 ml (Pmx)) 50 ml @ 100 mls/hr ONCE STAT IVPB 08/22/17 15:57 08/22/17 16:26 DC 08/22/17 16:32 Interpretation: Anemia, hyponatremia, hypokalemia and elevated BUN/creatinine. Procedures/MDM DOCUMENTS REVIEWED: ED nurse, prior ED, prior records including recent ED visit and prior admission. MEDICAL DECISION MAKIN-year-old male with a history of laryngeal cancer status post chemotherapy, chronic kidney disease, chronic abdominal pain with intractable nausea and vomiting status post G-tube placement, depression and anxiety presents to the ED for evaluation of 1 week history of worsening congestion, cough productive of dark sputum with worsening postprandial vomiting. Patient with chronic abdominal pain, status post multiple previous CT scans. The patient has a PEG tube according to caregiver does not been working well recently and the patient has been taking more p.o.'s with mixed success. Section reveals a left lower lobe infiltrate which is likely secondary to aspiration. This patient has had multiple previous little visits antibiotics for healthcare acquired pneumonia initiated pending cultures. No criteria for systemic inflammatory response syndrome or sepsis. Mild cellulitis around the G-tube. Admit to [facility] for further evaluation and management. Counseled she and caregiver regarding diagnosis, diagnostic results and plan for admission. CALLS/CONSULTS: Time 16:55, Dr. Gomez, will admit patient to [facility]. PATIENT CARE TRANSITIONED: Time: 16:55, Dr. Gomez Departure Diagnosis: Primary Impression: Left lower lobe pneumonia Pneumonia type: due to unspecified organism Qualified Code: J18.1 - Pneumonia of left lower lobe due to infectious organism Additional Impressions: History of laryngeal cancer Generalized abdominal pain Nausea and vomiting Vomiting type: unspecified Vomiting Intractability: unspecified Qualified Code: R11.2 - Nausea and vomiting, intractability of vomiting not specified, unspecified vomiting type Chronic kidney disease Chronic kidney disease stage: unspecified stage Qualified Code: N18.9 - Chronic kidney disease, unspecified CKD stage Condition: Serious SALOMÓN CELESTIN MD Aug 22, 2017 16:34
[2017-08-22] MEDS ORDERED: ONDANSETRON 4 MG INJ IV PRN ×2 (17:30→18:30)
[2017-08-22] MEDS ORDERED: ACETAMINOPHEN 325 MG TAB PO PRN ×2 (17:30→18:30)
[2017-08-22 18:00] VITALS: TEMP 97.7
[2017-08-22] MEDS ORDERED: NA PHOSPHATE/BIPHOS 133 ML ENEMA PR PRN (18:30)
[2017-08-22] MEDS ORDERED: LORAZEPAM 2 MG INJ IV PRN (18:30)
[2017-08-22] MEDS ORDERED: HYDROCODONE/APAP (5/325) TAB PO PRN (18:30)
[2017-08-22] MEDS ORDERED: MAGNESIUM HYDROXIDE 30ML CUP PO PRN (18:30)
[2017-08-22] MEDS ORDERED: ALBUTEROL/IPRATROPIUM (NEB) 3 ML AMP HHN PRN (18:30)
[2017-08-22] MEDS ORDERED: NACL 0.9% 3 ML SYG IV SCH (18:30)
[2017-08-22] MEDS ORDERED: DOCUSATE SODIUM 100 MG CAP PO PRN (18:30)
[2017-08-22] MEDS ORDERED: NITROGLYCERIN (SL) 0.4 MG TAB SL PRN (18:30)
[2017-08-22] MEDS ORDERED: hydrALAzine 20 MG INJ IV PRN (18:30)
[2017-08-22] MEDS ORDERED: GUAIFENESIN 20 MG/ML 5ML CUP PO PRN (19:00)
[2017-08-22] MEDS ORDERED: TRIMETHOBENZAMIDE 100 MG/ML VIAL IM PRN (19:00)
[2017-08-22] MEDS ORDERED: ONDANSETRON INJ 8 MG in SOD CHLORIDE 0.9% 50 ML IV PRN (19:00)
[2017-08-22] MEDS ORDERED: CEPASTAT LOZENGE MT PRN (19:00)
[2017-08-22 19:30] VITALS: Ht 170.2 cm; Wt 71.4 kg
[2017-08-22 20:21] VITALS: BP 134/84; RESP 18
[2017-08-22] MEDS: SOD CHLORIDE 0.45% 1,000 ML IV SCH (20:39)
[2017-08-22] MEDS: HEPARIN 5,000 UNIT/0.5 ML VIAL SC SCH (20:49)
[2017-08-22] MEDS: morphine 2 MG INJ IV PRN (20:50)
[2017-08-23] MEDS ORDERED: ONDANSETRON 4 MG INJ IV PRN (00:30)
--- NOTE | 2017-08-23 02:08 | HP ---
DATE OF ADMISSION: 08/22/2017 CHIEF COMPLAINT: Vomiting and cough. HISTORY OF PRESENT ILLNESS: The patient is a 57-year-old male with a past medical history of laryngeal cancer status post chemotherapy in the past, chronic kidney disease, chronic abdominal pain with intractable nausea and vomiting, prior G-tube placement, depression and anxiety, who has been having vomiting symptoms and some coughing symptoms going on for the last 1 to 2 weeks. He has also had some mild chest pressure and mild shortness of breath. His vomiting has been nonbilious, nonbloody, but he does feel occasionally his food is getting stuck in his throat. Denies any diarrhea or constipation. No hematuria or no dysuria. No abdominal pain. No headaches or dizziness. When he came in he had a chest x-ray performed; however, that does show signs of new evolving left lower lobe pneumonia. He was given a dose of antibiotic in the ER. The patient was last admitted to our hospital from 11/17/2016 to 11/20/2016. At that time he was also treated for abdominal pain with intractable nausea and vomiting. PAST MEDICAL HISTORY: As above. ALLERGIES: NO KNOWN DRUG ALLERGIES. MEDICATIONS: Home medications he is on PPI 30 mg daily. PAST SURGICAL HISTORY: Again he has had a G-tube placed in the past. SOCIAL HISTORY: He is a former alcohol user. Denies any IV drug abuse. He does smoke cigarettes as well, does not quantify how much. PHYSICAL EXAMINATION: VITAL SIGNS: Today vital signs with T-max 99.1, pulse 96, respirations 20, blood pressure 129/68, O2 saturation is 95 on percent room air GENERAL: The patient is lying in bed, answering questions appropriately, in mild distress. HEENT: Pupils are equal, round and react to light. Extraocular muscles are intact. NECK: Supple. No thyromegaly. LUNGS: Decreased breath sounds left greater than right bases. No wheezes. CARDIOVASCULAR: S1 and S2 heard. No murmurs, rubs or gallops. ABDOMEN: Soft. Mild tenderness to palpation. G-tube noted, but no rebound or guarding. MUSCULOSKELETAL: No lower extremity edema bilaterally. NEUROLOGIC: No focal deficits. LABORATORY DATA: CBC is normal. Sodium 130, potassium 3.3, chloride 84, CO2 35, BUN 15, creatinine 2.83, glucose 94. ASSESSMENT AND PLAN: This is a 57-year-old male coming in with vomiting symptoms and congestion and cough, found with left lower lobe pneumonia. 1. Cough and congestion. Again we will admit the patient to the hospital. We will check TSH, A1c and lipid panel and put him on broad-spectrum antibiotics. Tylenol p.r.n. pain and fevers. Follow up CBC and BMP in the morning. Low-dose IV fluids. 2. Intractable nausea and vomiting. Continue antiemetics for now. 3. Prior history of laryngeal cancer. Continue to monitor for now. 4. History of chronic kidney disease. We will monitor urine output. If it worsens we will consider kidney consultation. 5. Anxiety and depression. He will be on Ativan p.r.n. 6. GI prophylaxis. He will be on Prevacid 30 mg daily. 7. Deep venous thrombosis prophylaxis. Heparin subcutaneously. Consider PT and OT consultations as well. Dictated By: Gagan Gomez MD /scott/darryl /Document#: [id number]
[2017-08-23] MEDS: PIPER-TAZO 3.375 GM IV (PMX) 50 ML IVPB SCH ×3 (02:54→12:28)
[2017-08-23 03:14] VITALS: BP 120/77; RESP 18
[2017-08-23 06:07] LABS: BASOPHILS % 0.4 % (0.0-2.0); EOSINOPHILS % 0.8 % (0.0-7.0); HEMATOCRIT 27.9 % (42.0-52.0); HEMOGLOBIN 9.1 g/dl (14.0-18.0); LYMPHOCYTES # 0.7 10^3/ul (0.8-2.9); LYMPHOCYTES % 14.8 % (15.0-51.0); MEAN CORPUSCULAR HGB CONC 32.6 g/dl (32.0-37.0); MEAN CORPUSCULAR VOLUME 92.1 fl (82.0-101.0); MEAN PLATELET VOLUME 9.4 fl (7.4-10.4); MONOCYTE # 0.7 10^3/ul (0.3-0.9); MONOCYTES % 14.1 % (0.0-11.0); NEUTROPHIL # 3.4 10^3/ul (1.6-7.5); NEUTROPHILS % 69.3 % (39.0-77.0); PLATELET COUNT 297 10^3/UL (140-415); RED BLOOD COUNT 3.03 10^6/ul (4.70-6.10); RED CELL DISTRIBUTION WIDTH 13.2 % (11.5-14.5); WHITE BLOOD COUNT 4.9 10^3/ul (4.8-10.8)
[2017-08-23] MEDS: LANSOPRAZOLE 30 MG CAP PO SCH (06:13)
[2017-08-23 07:00] LABS: CALCIUM 8.2 mg/dl (8.4-10.2); CREATININE 2.4 mg/dl (0.61-1.24); MAGNESIUM 2.2 mg/dl (1.7-2.5); PHOSPHORUS 3.3 mg/dl (2.5-4.9)
[2017-08-23 07:10] LABS: THYROID STIMULATING HORMONE 2.46 MIU/L (0.465-4.680)
[2017-08-23] MEDS: SOD CHLORIDE 0.45% 1,000 ML IV SCH ×2 (07:23→10:14)
[2017-08-23 08:00] LABS: POTASSIUM 3.1 mmol/L (3.5-5.1)
[2017-08-23 08:01] VITALS: BP 119/73; RESP 22
[2017-08-23] MEDS: HEPARIN 5,000 UNIT/0.5 ML VIAL SC SCH ×2 (08:56→20:07)
[2017-08-23] MEDS ORDERED: LANSOPRAZOLE 30 MG CAP PO SCH (09:00)
[2017-08-23] MEDS: morphine 2 MG INJ IV PRN ×3 (10:21→19:56)
[2017-08-23 14:12] VITALS: BP 120/74; RESP 18
[2017-08-23] MEDS ORDERED: POTASSIUM CHLORIDE (SR) 20 MEQ TAB PO STA (14:43)
--- NOTE | 2017-08-23 14:56 | PN ---
Date/Time of Note Date/Time of Note DATE: 08/23/17 TIME: 14:51 Assessment/Plan VTE Prophylaxis VTE Prophylaxis Intervention: heparin Lines/Catheters IV Catheter Type (from Nrsg): Saline Lock Assessment/Plan Assessment/Plan 1. Abdominal pain with nausea and vomiting for 2 weeks, likely gastritis versus PUD, protonix, CT scan 2. No evidence of pneumonia 3. Prior history of laryngeal cancer 4. Chronic kidney disease. We will monitor urine output. If it worsens we will consider kidney consultation. 5. Anxiety and depression. He will be on Ativan p.r.n. 6. Deep venous thrombosis prophylaxis. Heparin subcutaneously. Subjective 24 Hr Interval Summary Free Text/Dictation abdominal pain with nausea and vomiting for 2 weeks, no vomiting today. No fever or chills. Exam/Review of Systems Vital Signs Vitals Vital Signs Date Time Temp Pulse Resp B/P Pulse Ox O2 Delivery O2 Flow Rate FiO2 08/23/17 14:12 97.5 73 18 120/74 95 08/22/17 18:00 Room Air Intake and Output 08/22/17 08/22/17 08/23/17 15:00 23:00 07:00 Intake Total 650 ml Output Total 900 ml Balance -250 ml Exam Constitutional: alert, oriented, well developed Psych: nl mood/affect, no complaints Head: atraumatic, normocephalic Eyes: EOMI, nl conjunctiva, nl lids ENMT: nl external ears & nose, nl lips & teeth, nl nasal mucosa & septum Neck: non-tender, supple Respiratory: clear to auscultation, normal air movement, No congested cough, No crackles/rales, No diminished breath sounds, No intercostal retraction, No labored breathing, No other, No respirations, No tactile fremitus, No wheezing Cardiovascular: nl pulses, regular rate and rhythm, No S3, No S4, No bruits, No diastolic murmur, No edema, No gallop, No irregular rhythm, No jugular venous distention (JVD), No murmurs/extra sounds, No other, No rub, No systolic murmur Gastrointestinal: nl liver, spleen, soft, tender Musculoskeletal: nl extremities to inspection Extremities: normal pulses, No calf tenderness, No clubbing, No cyanosis, No edema, No other, No palpable cord, No pitting pedal edema, No tenderness Neurological: CERAMIC CAPACITOR PROCESSOR II-XII intact, nl mental status, nl speech, nl strength Results Result Diagram: 08/23/1718 08/23/1718 Results 24 hrs Laboratory Tests Test 08/23/17 05:18 White Blood Count 4.9 # Red Blood Count 3.03 L Hemoglobin 9.1 L Hematocrit 27.9 L Mean Corpuscular Volume 92.1 Mean Corpuscular Hemoglobin 30.0 Mean Corpuscular Hemoglobin Concent 32.6 Red Cell Distribution Width 13.2 Platelet Count 297 Mean Platelet Volume 9.4 Neutrophils % 69.3 Lymphocytes % 14.8 L Monocytes % 14.1 H Eosinophils % 0.8 Basophils % 0.4 Nucleated Red Blood Cells % 0.0 Neutrophils # 3.4 Lymphocytes # 0.7 L Monocytes # 0.7 Eosinophils # 0.0 Basophils # 0.0 Nucleated Red Blood Cells # 0.0 Sodium Level 137 Potassium Level 3.1 L Chloride Level 95 #L Carbon Dioxide Level 31 Anion Gap 14 Blood Urea Nitrogen 38 #H Creatinine 2.40 H Glucose Level 86 Hemoglobin A1c 5.2 Calcium Level 8.2 L Phosphorus Level 3.3 Magnesium Level 2.2 Triglycerides Level 149 Cholesterol Level 85 L LDL Cholesterol, Calculated 43 HDL Cholesterol 12 L Cholesterol/HDL Ratio 7.0 Thyroid Stimulating Hormone (TSH) 2.460 Medications Medications Current Medications Acetaminophen (Tylenol Tab) 650 mg Q6H PRN PO PAIN LEVEL 1-3 OR FEVER; Start 08/22/17 at 18:30 Acetaminophen/ Hydrocodone Bitart ([place] (5/325)) 1 tab Q6H PRN PO MODERATE PAIN LEVEL 4-6; Start 08/22/17 at 18:30 Morphine Sulfate (morphine) 2 mg Q4H PRN IV SEVERE PAIN LEVEL 7-10 Last administered on 08/23/17 10:21; Admin Dose 2 MG; Start 08/22/17 at 18:30 Docusate Sodium (Colace) 100 mg Q12H PRN PO CONSTIPATION; Start 08/22/17 at 18: 30 Magnesium Hydroxide (Milk Of Mag) 30 ml DAILY PRN PO CONSTIPATION; Start at 18:30 Sodium Biphosphate/ Sodium Phosphate (Fleet Enema) 133 ml DAILY PRN [place] CONSTIPATION; Start 08/22/17 at 18:30 Heparin Sodium (Porcine) 5000 unit 5,000 unit Q12 SC Last administered on 08:56; Admin Dose 5,000 UNIT; Start 08/22/17 at 21:00 Sodium Chloride (1/2 NS) 1,000 ml @ 75 mls/hr [id number] IV Last administered on 08/23/17 10:14; Admin Dose 75 MLS/HR; Start 08/22/17 at 18:03 Lorazepam 0.5 mg 0.5 mg Q6H PRN IV ANXIETY; Start 08/22/17 at 18:30 Piperacillin Sod/ Tazobactam Sod (Zosyn 3.375gm/ 50 ml (Pmx)) 50 ml @ 100 mls/ hr Q6 IVPB Last administered on 08/23/17 12:28; Admin Dose 100 MLS/HR; Start 08/23/17 at 00:00 Hydralazine HCl (Apresoline) 10 mg Q6H PRN IV ELEVATED BLOOD PRESSURE; Start 08/22/17 at 18:30 Clonidine (Catapres) 0.1 mg Q6H PRN PO ELEVATED BLOOD PRESSURE; Start 08/22/17 at 18:30 Nitroglycerin (Nitroglycerin (Sl Tab) 0.4 Mg) 1 tab Q5M PRN SL ANGINA; Start 08/22/17 at 18:30 Lansoprazole (Prevacid) 30 mg DAILY@06 PO Last administered on 08/23/17 06:13 ; Admin Dose 30 MG; Start 08/23/17 at 06:00 Phenol (Cepastat Lozenge) 1 lozenge Q1H PRN MT COUGH; Start 08/22/17 at 19:00 Guaifenesin (Robitussin Liquid Cup) 200 mg Q4H PRN PO COUGH Last administered on 08/22/17 20:49; Admin Dose 200 MG; Start 08/22/17 at 19:00 Trimethobenzamide HCl 200 mg 200 mg Q6H PRN IM NAUSEA AND/OR VOMITING; Start 08/22/17 at 19:00 Ondansetron HCl/ Sodium Chloride (Zofran Inj/NS) 54 ml @ 216 mls/hr Q6H PRN IV NAUSEA AND/OR VOMITING; Start 08/22/17 at 19:00 Influenza Virus Vaccine (Fluzone) 0.5 ml ONCE ONCE IM* ; Start 08/24/17 at 09: 00; Stop 08/24/17 at 09:01 BLAKE KO MD Aug 23, 2017 14:56
[2017-08-23] MEDS ORDERED: POTASSIUM CHLORIDE 20 MEQ POWDER FOR ORAL SOLN GTB ONE (15:30)
[2017-08-23] MEDS ORDERED: BARIUM SULF 2% 450 ML BTL (BERRY SMOOTHIE) PO ONE (16:00)
[2017-08-23 20:00] VITALS: BP 130/76; RESP 20
[2017-08-24] MEDS: SOD CHLORIDE 0.45% 1,000 ML IV SCH (00:26)
[2017-08-24 02:00] VITALS: BP 116/67; RESP 20
[2017-08-24] MEDS: morphine 2 MG INJ IV PRN ×2 (03:12→10:33)
[2017-08-24] MEDS: LANSOPRAZOLE 30 MG CAP PO SCH (04:15)
--- NOTE | 2017-08-24 04:49 | RADRPT ---
PROCEDURE: CT Abdomen and Pelvis without contrast. CLINICAL INDICATION: Abdominal pain with nausea and vomiting para TECHNIQUE: CT scan of the abdomen and pelvis without contrast was performed on a multidetector hig h-resolution CT scanner. The patient was scanned without intravenous contrast. Coronal and sagittal reformatted images were obtained from the axial source images. Images were reviewed on a high-resol [employer] PACS workstation. The total exam CTDI equals 8.3 mGy and the total exam DLP equals 507.09 mGy- cm. One or more of the following dose reduction techniques were used: - Automated exposure control. - Adjustment of the mA and/or kV according to patient size. - Use of iterative reconstruction technique. COMPARISON: 04/25/2017. FINDINGS: CT Abdomen and Pelvis: Lung bases: Interval appearing lingula and bilateral, left greater than right lower lung airspace di sease is present with considerations including atelectasis and consolidation. There is no evidence o f a pleural effusion. No demonstration of cardiomegaly. There is an interval appearing pericardial e ffusion measuring 10 mm in transverse dimension. Solid organs: The spleen and pancreas are unremarkable. There is hepatomegaly without evidence of a discrete hepatic mass. Bilateral adrenal gland thickening without discrete mass present favored to represent adrenal hyperplasia. Biliary: The gallbladder is mildly distended. No evidence of intra or extrahepatic biliary ductal d ilatation. GI: A percutaneous gastrostomy tube is present with balloon located in the gastric body. The small bowel is nondistended. Moderate retained fecal matter is present at the colon consistent with consti pation. No pericolonic inflammatory changes are present. : No evidence of hydronephrosis or space occupying renal mass. The urinary bladder is unremarkabl e. Peritoneum: No evidence of ascites or pneumoperitoneum. Lymph nodes: No pathologically enlarged lymphadenopathy. Vascular: Calcified plaque is present within the abdominal aorta . No evidence of an abdominal aort ic aneurysm. Osseous structures: No aggressive appearing osteolytic or osteoblastic lesions. There is partial an kylosis of the bilateral sacroiliac joints. IMPRESSION: 1. Lingula and bilateral, left greater than right lower lobe airspace disease. Within the bilateral lower lobes considerations include consolidation and atelectasis. 2. Pericardial effusion measuring 10 mm in transverse dimension. 3. Percutaneous gastrostomy tube with balloon located in the gastric body. 4. Mild hepatomegaly. RPTAT: HRSR Aminata Aguero, Physician Date Time Electronically viewed and signed by Aminata Aguero, Physician on 08/24/2017 04:49 RR/
[2017-08-24 06:39] LABS: BASOPHILS % 0.8 % (0.0-2.0); EOSINOPHILS # 0.1 10^3/ul (0.0-0.5); EOSINOPHILS % 2.3 % (0.0-7.0); HEMATOCRIT 27.1 % (42.0-52.0); HEMOGLOBIN 8.7 g/dl (14.0-18.0); LYMPHOCYTES # 0.7 10^3/ul (0.8-2.9); LYMPHOCYTES % 18.5 % (15.0-51.0); MEAN CORPUSCULAR HGB CONC 32.1 g/dl (32.0-37.0); MEAN CORPUSCULAR VOLUME 93.4 fl (82.0-101.0); MEAN PLATELET VOLUME 9.3 fl (7.4-10.4); MONOCYTE # 0.6 10^3/ul (0.3-0.9); MONOCYTES % 14.9 % (0.0-11.0); NEUTROPHIL # 2.5 10^3/ul (1.6-7.5); NEUTROPHILS % 62.7 % (39.0-77.0); PLATELET COUNT 328 10^3/UL (140-415); RED CELL DISTRIBUTION WIDTH 13.2 % (11.5-14.5)
[2017-08-24 07:11] LABS: CALCIUM 8.3 mg/dl (8.4-10.2); CREATININE 2.08 mg/dl (0.61-1.24); POTASSIUM 3.5 mmol/L (3.5-5.1)
[2017-08-24 08:07] VITALS: BP 159/84; RESP 18
[2017-08-24] MEDS ORDERED: INFLUENZA VIRUS VACCINE 0.5 ML (DISPENSING) IM* ONE (09:00)
[2017-08-24] MEDS: HEPARIN 5,000 UNIT/0.5 ML VIAL SC SCH ×2 (10:40→20:29)
[2017-08-24] MEDS: LEVOFLOXACIN 250MG/D5W (PMX) 50 ML IVPB SCH (14:33)
--- NOTE | 2017-08-24 14:44 | PN ---
Date/Time of Note Date/Time of Note DATE: 08/24/17 TIME: 14:41 Assessment/Plan VTE Prophylaxis VTE Prophylaxis Intervention: heparin Lines/Catheters IV Catheter Type (from Nrs): Peripheral IV Urinary Cath still in place: No Assessment/Plan Assessment/Plan 1. Abdominal pain with nausea and vomiting for 2 weeks, likely gastritis versus PUD, protonix, CT scan 2. CT scan chest revealed pulmonary infiltrates, on levaquin 3. Prior history of laryngeal cancer, CT neck and head 4. Chronic kidney disease. We will monitor urine output. If it worsens we will consider kidney consultation. 5. Anxiety and depression. He will be on Ativan p.r.n. 6. Dysphagia, video swallow study per speech 7. Deep venous thrombosis prophylaxis. Heparin subcutaneously. Subjective 24 Hr Interval Summary Free Text/Dictation difficulty in swallowing Exam/Review of Systems Vital Signs Vitals Vital Signs Date Time Temp Pulse Resp B/P Pulse Ox O2 Delivery O2 Flow Rate FiO2 08/24/17 08:07 97.9 72 18 159/84 98 08/22/17 18:00 Room Air Intake and Output 08/23/17 08/23/17 08/24/17 14:59 22:59 06:59 Intake Total 500 ml 725 ml 825 ml Output Total 1500 ml 1000 ml Balance 500 ml -775 ml -175 ml Exam Constitutional: alert, oriented, well developed Psych: nl mood/affect, no complaints Head: atraumatic, normocephalic Eyes: EOMI, PERRL, nl conjunctiva, nl lids ENMT: nl external ears & nose, nl lips & teeth, nl nasal mucosa & septum Neck: non-tender, supple Respiratory: clear to auscultation, normal air movement, No congested cough, No crackles/rales, No diminished breath sounds, No intercostal retraction, No labored breathing, No other, No respirations, No tactile fremitus, No wheezing Cardiovascular: nl pulses, regular rate and rhythm, No S3, No S4, No bruits, No diastolic murmur, No edema, No gallop, No irregular rhythm, No jugular venous distention (JVD), No murmurs/extra sounds, No other, No rub, No systolic murmur Gastrointestinal: nl liver, spleen, non-tender, soft Musculoskeletal: nl extremities to inspection Extremities: normal pulses, No calf tenderness, No clubbing, No cyanosis, No edema, No other, No palpable cord, No pitting pedal edema, No tenderness Neurological: FIGURE REFINISHER AND REPAIRER II-XII intact, nl mental status Results Result Diagram: 08/24/17 0511 08/24/17 0511 Results 24 hrs Laboratory Tests Test 08/24/17 05:11 08/24/17 10:35 White Blood Count 4.0 L Red Blood Count 2.90 L Hemoglobin 8.7 L Hematocrit 27.1 L Mean Corpuscular Volume 93.4 Mean Corpuscular Hemoglobin 30.0 Mean Corpuscular Hemoglobin Concent 32.1 Red Cell Distribution Width 13.2 Platelet Count 328 Mean Platelet Volume 9.3 Neutrophils % 62.7 Lymphocytes % 18.5 Monocytes % 14.9 H Eosinophils % 2.3 Basophils % 0.8 Nucleated Red Blood Cells % 0.0 Neutrophils # 2.5 Lymphocytes # 0.7 L Monocytes # 0.6 Eosinophils # 0.1 Basophils # 0.0 Nucleated Red Blood Cells # 0.0 Sodium Level 138 Potassium Level 3.5 Chloride Level 100 Carbon Dioxide Level 25 Anion Gap 17 H Blood Urea Nitrogen 29 H Creatinine 2.08 H Glucose Level 68 #L Calcium Level 8.3 L Bedside Glucose 78 Medications Medications Current Medications Acetaminophen (Tylenol Tab) 650 mg Q6H PRN PO PAIN LEVEL 1-3 OR FEVER; Start 08/22/17 at 18:30 Acetaminophen/ Hydrocodone Bitart ([place] (5/325)) 1 tab Q6H PRN PO MODERATE PAIN LEVEL 4-6; Start 08/22/17 at 18:30 Morphine Sulfate (morphine) 2 mg Q4H PRN IV SEVERE PAIN LEVEL 7-10 Last administered on 08/24/17 10:33; Admin Dose 2 MG; Start 08/22/17 at 18:30 Docusate Sodium (Colace) 100 mg Q12H PRN PO CONSTIPATION; Start 08/22/17 at 18: 30 Magnesium Hydroxide (Milk Of Mag) 30 ml DAILY PRN PO CONSTIPATION; Start at 18:30 Sodium Biphosphate/ Sodium Phosphate (Fleet Enema) 133 ml DAILY PRN [place] CONSTIPATION; Start 08/22/17 at 18:30 Heparin Sodium (Porcine) 5000 unit 5,000 unit Q12 SC Last administered on 08/24 10:40; Admin Dose 5,000 UNIT; Start 08/22/17 at 21:00 Sodium Chloride (1/2 NS) 1,000 ml @ 75 mls/hr [id number] IV Last administered on 08/24/17 00:26; Admin Dose 75 MLS/HR; Start 08/22/17 at 18:03 Lorazepam (Ativan) 0.5 mg Q6H PRN IV ANXIETY; Start 08/22/17 at 18:30 Hydralazine HCl (Apresoline) 10 mg Q6H PRN IV ELEVATED BLOOD PRESSURE; Start 08/22/17 at 18:30 Clonidine (Catapres) 0.1 mg Q6H PRN PO ELEVATED BLOOD PRESSURE; Start 08/22/17 at 18:30 Nitroglycerin (Nitroglycerin (Sl Tab) 0.4 Mg) 1 tab Q5M PRN SL ANGINA; Start 08/22/17 at 18:30 Lansoprazole (Prevacid) 30 mg DAILY@06 PO Last administered on 08/23/17 06:13 ; Admin Dose 30 MG; Start 08/23/17 at 06:00 Phenol (Cepastat Lozenge) 1 lozenge Q1H PRN MT COUGH; Start 08/22/17 at 19:00 Guaifenesin (Robitussin Liquid Cup) 200 mg Q4H PRN PO COUGH Last administered on 08/22/17 20:49; Admin Dose 200 MG; Start 08/22/17 at 19:00 Trimethobenzamide HCl 200 mg 200 mg Q6H PRN IM NAUSEA AND/OR VOMITING; Start 08/22/17 at 19:00 Ondansetron HCl 8 mg/Sodium Chloride 54 ml @ 216 mls/hr Q6H PRN IV NAUSEA AND/ OR VOMITING; Start 08/22/17 at 19:00 Levofloxacin/ Dextrose (Levaquin 250 Mg/ D5W 50 ml (Pmx)) 50 ml @ 50 mls/hr Q24H IVPB Last administered on 08/24/17 14:33; Admin Dose 50 MLS/HR; Start 08/24/17 at 14:30 BLAKE KO MD Aug 24, 2017 14:44
[2017-08-24 15:02] VITALS: BP 153/79; RESP 20
[2017-08-24 20:22] VITALS: BP 174/86; RESP 17
--- NOTE | 2017-08-24 20:50 | RADRPT ---
PROCEDURE: CT Brain without contrast. CLINICAL INDICATION: Headache. TECHNIQUE: A CT of the brain without contrast was performed utilizing axial sections from the skul l base through the vertex. The patient was scanned without intravenous contrast enhancement. Sagitta l and coronal reformatted images were obtained using the data from the axial images. Total exam DLP is 720.23 mGy-cm. CTDIvol is 44.11 mGy. One or more of the following dose reduction techniques we re used: Automated exposure control, adjustment of the mA and/or kV according to patient size, use o f iterative reconstruction technique. DICOM images are available. COMPARISON: None available FINDINGS: There is normal chacko-white matter differentiation. There is enlargement of the ventricles and subarachnoid spaces consistent with atrophy. There is decreased attenuation of the periventricular white matter consistent with microangiopathic ischemic change. There is no intracranial hemorrhage or space-occupying lesion. There are vascular calcifications consistent with atherosclerosis. There is no skull fracture or lytic lesion. IMPRESSION: 1. Atrophy. 2. Microangiopathic ischemic change. 3. Atherosclerosis. 4. Otherwise unremarkable noncontrast CT scan of the brain. RPTAT: QQ .Jason Tafoya MD, Date Time Electronically viewed and signed by .Jason Tafoya MD, on 08/24/2017 20:49 .R/
[2017-08-24 21:37] VITALS: BP 146/85; PULSE 86
--- NOTE | 2017-08-24 23:03 | RADRPT ---
PROCEDURE: CT soft tissue neck without contrast. CLINICAL INDICATION: Vomiting, neck pain. Evaluate for metastatic disease. TECHNIQUE: The study was performed utilizing a GE 64-slice multidetector CT scanner. Direct thin s ection helically acquired axial sections were obtained through the neck without contrast. Coronal a nd sagittal reformations were obtained. One or more the following dose reduction techniques were uti lized: Automated exposure control, adjustment of the mA/ or kV according to patient's size, or use of iterative reconstruction technique. DICOM images are available for review. The images were revie wed on a PACS workstation. The CTDIvol is 9.5 mGy and the DLP is 214.6 mGycm. COMPARISON: No prior studies are available for comparison. FINDINGS: There is mild motion artifact. The nasopharynx and oropharynx are grossly normal in appearance. Ther e does appear to be some degree of thickening of the aryepiglottic folds, minimally more pronounced on the right than left. Slight asymmetric prominence of the left piriform sinus is noted. No discret e mass is seen on this noncontrast study. The larynx is grossly unremarkable. The thyroid gland is diminutive and slightly heterogeneous without a discrete nodule. The submandibular glands are slight ly atrophic. The parotid glands are grossly unremarkable. No pathologically enlarged lymph nodes are detected. No osteolytic or blastic lesion is evident. There is a patchy ill-defined left upper lobe infiltrate. IMPRESSION: 1. There does appear to be some degree of thickening of the aryepiglottic folds, which is slightly more pronounced on the right than left. No discrete mass lesion is seen on this noncontrast study. T he appearance on this noncontrast study is suggestive of edema. 2. Diminutive thyroid gland with slight heterogeneity but no discrete nodule. 3. Otherwise, grossly unremarkable noncontrast CT of the soft tissues of the neck. RPTAT: HJAH .Loretta Pierce MD, Date Time Electronically viewed and signed by .Loretta Pierce MD, MD on 08/24/2017 23:02 .H/
[2017-08-25 02:27] VITALS: BP 132/67; RESP 18
[2017-08-25] MEDS: LANSOPRAZOLE 30 MG CAP PO SCH (05:02)
[2017-08-25 05:46] LABS: BASOPHILS % 0.6 % (0.0-2.0); EOSINOPHILS # 0.1 10^3/ul (0.0-0.5); EOSINOPHILS % 1.7 % (0.0-7.0); HEMATOCRIT 31.4 % (42.0-52.0); HEMOGLOBIN 10.3 g/dl (14.0-18.0); LYMPHOCYTES # 0.9 10^3/ul (0.8-2.9); MEAN CORPUSCULAR HEMOGLOBIN 30.2 pg (29.0-33.0); MEAN CORPUSCULAR HGB CONC 32.8 g/dl (32.0-37.0); MEAN CORPUSCULAR VOLUME 92.1 fl (82.0-101.0); MEAN PLATELET VOLUME 9.6 fl (7.4-10.4); MONOCYTE # 0.6 10^3/ul (0.3-0.9); MONOCYTES % 12.3 % (0.0-11.0); NEUTROPHIL # 3.1 10^3/ul (1.6-7.5); NEUTROPHILS % 64.9 % (39.0-77.0); PLATELET COUNT 384 10^3/UL (140-415); POSITIVE DIFF @See below; RED BLOOD COUNT 3.41 10^6/ul (4.70-6.10); RED CELL DISTRIBUTION WIDTH 13.1 % (11.5-14.5); WHITE BLOOD COUNT 4.8 10^3/ul (4.8-10.8)
[2017-08-25 06:13] LABS: CALCIUM 8.8 mg/dl (8.4-10.2); CREATININE 1.79 mg/dl (0.61-1.24); POTASSIUM 3.5 mmol/L (3.5-5.1)
[2017-08-25 07:30] VITALS: BP 124/78; RESP 18
[2017-08-25] MEDS: HEPARIN 5,000 UNIT/0.5 ML VIAL SC SCH (08:48)
[2017-08-25] MEDS ORDERED: BARIUM SULFATE 135 ML (E-Z HD) PO ONE (11:03)
--- NOTE | 2017-08-25 13:13 | CONS ---
Date/Time of Note Date/Time of Note DATE: 08/25/17 TIME: 13:05 Assessment/Plan Assessment/Plan Chief Complaint/Hosp Course GI Impression: 1. dysphagia: likely due to aryepiglottic folds edema. 2. intractable n/v: likely secondary to PNA which improved after being treated for his PNA 3. upper abdominal pain: patient told me it more on his chest area, not really abdominal pain Recommendations: 1. his dysphagia likely due to thick aryepiglottic folds which GI recommend ENT eval. 2. continue tube feeds as he is tolerating 3. no active GI issues. 4. GI will follow and do EGD if his intractable nausea and vomiting occurs or for any other indication. Problems: Consultation Date/Type/Reason Admit Date/Time Aug 22, 2017 at 17:07 Date of Consultation: Aug 25, 2017 Type of Consultation: GI Reason for Consultation abdominal pain, nausea and vomiting Hx of Present Illness 57-year-old male who was initially admitted for abdominal pain, nausea and vomiting. He has a past medical history of laryngeal cancer status post chemotherapy in the past, chronic kidney disease, chronic abdominal pain with intractable nausea and vomiting, prior G-tube placement, depression and anxiety , who had nausea and vomiting as well as chest pressure and mild shortness of breath. His vomiting has been nonbilious, nonbloody, but he does feel occasionally his food is getting stuck in his throat. Denies any diarrhea or constipation. No hematuria or no dysuria. No abdominal pain. No headaches or dizziness. When he came in he had a chest x-ray performed; however, that does show signs of new evolving left lower lobe pneumonia. He was given a dose of antibiotic in the ER. After being treated with antibiotics, his chest pressure , SOB, and nausea and vomiting resolved. CT reviewed by myself and only showed aryepiglottic folds thickness. All point ros administered, pertinent positives and negatives in HPI otherwise negative. Psychological: nl mood/affect, no complaints Past Medical History laryngeal cancer Medical History: renal disease Past Surgical History Past Surgical Hx: other Family History Significant Family History: no pertinent family hx Social History Alcohol Use: none Smoking Status: Former smoker Drug Use: none Exam/Review of Systems Vital Signs Vitals Vital Signs Date Time Temp Pulse Resp B/P Pulse Ox O2 Delivery O2 Flow Rate FiO2 08/25/17 07:30 98.6 84 18 124/78 99 08/22/17 18:00 Room Air Intake and Output 08/24/17 08/24/17 08/25/17 15:00 23:00 07:00 Intake Total 705 ml 50 ml 650 ml Output Total 1200 ml 650 ml Balance 705 ml -1150 ml 0 ml Exam Constitutional: alert, oriented, well developed Psych: nl mood/affect, no complaints Head: atraumatic, normocephalic Eyes: EOMI, nl conjunctiva, nl lids ENMT: nl external ears & nose, nl lips & teeth, nl nasal mucosa & septum Neck: non-tender, supple Respiratory: clear to auscultation, normal air movement Cardiovascular: nl pulses, regular rate and rhythm Gastrointestinal: bowel sounds, non-tender, other (PEG c/d/i), soft Results Result Diagram: 08/25/17 0510 08/25/17 0510 Results 24 hrs Laboratory Tests Test 08/25/17 05:10 White Blood Count 4.8 Red Blood Count 3.41 L Hemoglobin 10.3 L Hematocrit 31.4 L Mean Corpuscular Volume 92.1 Mean Corpuscular Hemoglobin 30.2 Mean Corpuscular Hemoglobin Concent 32.8 Red Cell Distribution Width 13.1 Platelet Count 384 Mean Platelet Volume 9.6 Neutrophils % 64.9 Lymphocytes % 19.0 Monocytes % 12.3 H Eosinophils % 1.7 Basophils % 0.6 Nucleated Red Blood Cells % 0.0 Neutrophils # 3.1 Lymphocytes # 0.9 Monocytes # 0.6 Eosinophils # 0.1 Basophils # 0.0 Nucleated Red Blood Cells # 0.0 Sodium Level 139 Potassium Level 3.5 Chloride Level 100 Carbon Dioxide Level 27 Anion Gap 16 Blood Urea Nitrogen 26 H Creatinine 1.79 H Glucose Level 110 # Calcium Level 8.8 Medications Medications Current Medications Acetaminophen (Tylenol Tab) 650 mg Q6H PRN PO PAIN LEVEL 1-3 OR FEVER; Start 08/22/17 at 18:30 Acetaminophen/ Hydrocodone Bitart (Morven (5/325)) 1 tab Q6H PRN PO MODERATE PAIN LEVEL 4-6; Start 08/22/17 at 18:30 Morphine Sulfate (morphine) 2 mg Q4H PRN IV SEVERE PAIN LEVEL 7-10 Last administered on 08/24/17t 10:33; Admin Dose 2 MG; Start 08/22/17 at 18:30 Docusate Sodium (Colace) 100 mg Q12H PRN PO CONSTIPATION; Start 08/22/17 at 18: 30 Magnesium Hydroxide (Milk Of Mag) 30 ml DAILY PRN PO CONSTIPATION; Start at 18:30 Sodium Biphosphate/ Sodium Phosphate (Fleet Enema) 133 ml DAILY PRN [place] CONSTIPATION; Start 08/22/17 at 18:30 Heparin Sodium (Porcine) (Heparin (5000 Units/0.5 ml)) 5,000 unit Q12 SC Last administered on 08/25/17 08:48; Admin Dose 5,000 UNIT; Start 08/22/17 at 21:00 Lorazepam (Ativan) 0.5 mg Q6H PRN IV ANXIETY; Start 08/22/17 at 18:30 Hydralazine HCl (Apresoline) 10 mg Q6H PRN IV ELEVATED BLOOD PRESSURE; Start 08/22/17 at 18:30 Clonidine (Catapres) 0.1 mg Q6H PRN PO ELEVATED BLOOD PRESSURE Last administered on 08/24/17 20:30; Admin Dose 0.1 MG; Start 08/22/17 at 18:30 Nitroglycerin (Nitroglycerin (Sl Tab) 0.4 Mg) 1 tab Q5M PRN SL ANGINA; Start 08/22/17 at 18:30 Lansoprazole (Prevacid) 30 mg DAILY@06 PO Last administered on 08/25/17 05:02 ; Admin Dose 30 MG; Start 08/23/17 at 06:00 Phenol (Cepastat Lozenge) 1 lozenge Q1H PRN MT COUGH; Start 08/22/17 at 19:00 Guaifenesin (Robitussin Liquid Cup) 200 mg Q4H PRN PO COUGH Last administered on 08/22/17 20:49; Admin Dose 200 MG; Start 08/22/17 at 19:00 Trimethobenzamide HCl 200 mg 200 mg Q6H PRN IM NAUSEA AND/OR VOMITING; Start 08/22/17 at 19:00 Ondansetron HCl 8 mg/Sodium Chloride 54 ml @ 216 mls/hr Q6H PRN IV NAUSEA AND/ OR VOMITING; Start 08/22/17 at 19:00 Levofloxacin/ Dextrose (Levaquin 250 Mg/ D5W 50 ml (Pmx)) 50 ml @ 50 mls/hr Q24H IVPB Last administered on 08/24/17t 14:33; Admin Dose 50 MLS/HR; Start 08/24/17 at 14:30 ORQUIDEA GONZALEZ MD Aug 25, 2017 13:13
[2017-08-25] MEDS: LEVOFLOXACIN 250MG/D5W (PMX) 50 ML IVPB SCH (14:03)
[2017-08-25 14:17] VITALS: BP 138/89; RESP 18
[2017-08-25] MEDS ORDERED: THO25 PO (14:52)
--- NOTE | 2017-08-25 14:52 | PDOCDIS ---
Discharge Instructions CONDITION Patient Condition: Good HOME CARE INSTRUCTIONS: Diet Instructions: Regular ACTIVITY: Activity Restrictions: No Restrictions FOLLOW UP/APPOINTMENTS Follow-up Plan Follow-up with your PCP in 1-2 weeks, follow-up with your ENT physician KIM SYED Aug 25, 2017 14:52
--- NOTE | 2017-08-25 15:07 | DS ---
Date/Time of Note Date/Time of Note DATE: 08/25/17 TIME: 14:53 Discharge Summary Admission/Discharge Info Admit Date/Time Aug 22, 2017 at 17:07 Discharge Date/Time August 25, 2017 Discharge Diagnosis 1. Dysphasia secondary to chemoradiation 3 years ago for laryngeal cancer Patient follow-up with ENT as an outpatient Patient does tolerate a p.o. diet times, patient also uses tube feeding when needed CT neck shows some degree of thickening of the aryepiglottic folds, which is slightly more pronounced on the right than left. No discrete mass lesion is seen on this noncontrast study. The appearance on this noncontrast study is suggestive of edema. 2. Left lower lobe pneumonia status post antibiotics-resolved with no evidence of infection at this time 3. Debility likely secondary to history of alcohol abuse as well as previous chemoradiation Continue ambulation with front wheel walker CT brain does show atrophy as well as as well as microangiopathic ischemic changes and atherosclerosis, these findings are unusual for his age and etiology may be secondary to history of alcohol abuse and possibly from previous radiation, previously used radiation protocol and location are unclear at this time 4. Chronic kidney disease-stable Patient Condition: Good Hospital Course Patient is a 57-year-old male with a history of laryngeal cancer status post chemoradiation approximately 3 years ago. Patient has since declined with difficulty tolerating a p.o. diet and had a PEG tube placed approximately 3 years ago. Patient does intermittently tolerate a p.o. diet but often requires tube feeds for appropriate nutrition and hydration. Patient does have a caregiver and does ambulate with frontwheel walker. Patient presents with persistent cough, hiccups and chest x-ray on arrival suggested left-sided pneumonia. Patient did receive antibiotics while in-house and on day of discharge patient had no evidence of sepsis denied any cough. Patient did have a CT of his neck that showed no mass but did show thickening of the aryepiglottic folds. Patient's dysphasia is clearly related to these findings. Pt does report persistent hiccups and was told that he will be given Thorazine for this. Patient's mother had many questions about his sudden onset of weakness and debility that began 3 years ago and was proximally 4 months after his last round of radiation. She was explained about the CT brain findings that that did show atrophy and microangiopathic changes as well as atherosclerosis. His findings are unusual for someone of his age and etiology may be secondary to his previous alcohol abuse as he did drink heavily for 30 years or may be related to his previous radiation for his laryngeal cancer but exact radiation protocol is unknown to me. Nonetheless patient was encouraged to continue ambulating and to continue with improving lifestyle. Patient was felt to be stable for discharge and on the day of discharge patient's vitals, labs physical exam are stable, had no further acute complaints and questions were answered. Home Meds Active Scripts Chlorpromazine Hcl* (Thorazine*) 25 Mg Tab, 25 MG PO TID, #90 TAB TAKE FOR HICCUPS, STOP MEDICATION ONCE HICCUPS RESOLVE Prov:KIM SYED 08/25/17 Reported Medications Lansoprazole* (Lansoprazole*) 30 Mg Capsule.dr, 30 MG PO DAILY, CAP 08/16/17 Discontinued Scripts Ondansetron (Ondansetron Odt) 4 Mg Tab.rapdis, 4 MG PO TID Y for NAUSEA AND/OR VOMITING, #10 TAB Prov:ORQUIDEA KING MD 08/16/17 Oxycodone HCl/Acetaminophen (Percocet 5-325 mg Tablet) 1 Each Tablet, 1 EACH PO TID for PAIN, #9 TAB Prov:ORQUIDEA KING MD 08/16/17 Follow-up Plan Follow-up with your PCP in 1-2 weeks, follow-up with your ENT physician Primary Care Provider Not On Staff Doctor Time spent on discharge: > 30 minutes KIM SYED Aug 25, 2017 15:05
--- NOTE | 2017-08-25 17:11 | RADRPT ---
PROCEDURE: Video fluoroscopy swallowing study CLINICAL INDICATION: Dysphagia TECHNIQUE: Modified barium swallowing study was performed in conjunction with the speech therapist . Fluoroscopy was utilized for the procedure. Imaging was confined to the oral pharyngeal and cervi haim phases of the swallowing mechanism. Fluoroscopic guidance was utilized during a modified barium swallowing study with multiple swallows of thin and thick liquids. Site of service: Inpatient COMPARISON: 09/27/2016 FINDINGS: There is evidence of penetration/aspiration with nectar-thick liquids in neutral position and chin t uck as well as aspiration with mechanical soft foods. No aspiration was visualized with puree liquid s. The aspiration was not silent as the patient attempted to cough after the aspiration. 2.5 minutes of fluoroscopy time was utilized. Over 1700 fluoroscopic images were obtained. IMPRESSION: 1. Evidence of aspiration with nectar-thick and mechanical soft foods. 2. Please refer to swallowing therapist's recommendations for future feedings. RPTAT: QQ .Jenny Mendez MD, MD Date Time Electronically viewed and signed by .Jenny Mendez MD, on 08/25/2017 17:11 .T/
== END 2017-08-25 16:15 | disposition home or self-care (01) | DRG 195 ==
LOC: E/R 12:04 → PP2 17:07
PROVIDERS: ADMIT Hospitalist; ATTEND Hospitalist
DX: J18.9 Pneumonia, unspecified organism (principal); J38.4 Edema of larynx; Z93.1 Gastrostomy status; F32.9 Major depressive disorder, single episode, unspecified; R10.9 Unspecified abdominal pain; R11.2 Nausea with vomiting, unspecified; F41.9 Anxiety disorder, unspecified; N18.9 Chronic kidney disease, unspecified; R47.02 Dysphasia; R06.6 Hiccough; F10.21 Alcohol dependence, in remission; Z85.21 Personal history of malignant neoplasm of larynx; Z72.0 Tobacco use
CPT/HCPCS: 70450; 70490; 71010; 74176; 74230; 80048; 80053; 80061; 82962; 83036; 83690; 83735; 84100; 84439; 84443; 85025; 87040; 90686; 92526; 92610; 92611; 96374; 96375; 97161; 97166; 97530; J0692; J1644; J1956; J2270; J2405; J2543; J7030

== ENCOUNTER 2017-12-19 13:11 | Emergency (ER) | END 2017-12-19 18:43 | disposition home or self-care (01) ==

== ENCOUNTER 2018-06-19 12:22 | Emergency (ER) | END 2018-06-19 14:07 | disposition home or self-care (01) ==

== ENCOUNTER 2018-08-24 11:26 | Emergency (ER) | END 2018-08-24 14:28 | disposition home or self-care (01) ==

== ENCOUNTER 2019-01-24 12:28 | Emergency (ER) | payer OTHER ==
[~2019-01-24] VITALS: Ht 170.2 cm; Wt 68.0 kg
[~2019-01-24 12:28] MED LIST changes: +HYDR-4011 PO; -OXYC-279 PO
[2019-01-24 12:44] VITALS: Ht 170.2 cm; Wt 68.0 kg
[2019-01-24] MEDS ORDERED: ASPI-817 GTB (16:54)
[2019-01-24] MEDS ORDERED: IOHEXOL 300MG/ML 30 ML BTL ONE (16:54)
[2019-01-24] MEDS ORDERED: LANS30CA GTB (16:54)
[2019-01-24] MEDS ORDERED: DIATR MEGLU/DIATRIZOATE SODIUM 30 ML SOLUTION PO ONE (17:00)
--- NOTE | 2019-01-24 17:29 | ERD ---
ER Documentation Chief Complaint Chief Complaint pt is sent for new G-tube, G-tube leaking HPI This is a 58-year-old male with a past medical history of oral cancer status post chemoradiation currently in remission, dysphagia status post chronic G-tube placement who is presenting for G-tube malfunction. The patient reports that it has been leaking over the last 3 days. He was sent to the emergency department for replacement. The patient has no other complaints. He does not recall how it started to leak. The leaking gets worse when the G-tube is flushed or when he is being fed. The G-tube has not been replaced in over a year. The patient denies feeling sick recently. The patient denies fever or chills. The patient has had no headache or vision changes. The patient does not endorse neck or back pain. The patient denies lightheadedness or dizziness. The patient has had no chest pain or trouble breathing. The patient denies nausea or vo miting. The patient denies abdominal pain. The patient denies changes to bowel movements or urination. The patient has had no focal deficits. The patient has had no weakness or numbness or tingling to the face or extremities. ROS All systems reviewed and are negative except as per history of present illness. Medications Home Meds Reported Medications Aspirin* (Aspirin* EC) 81 Mg Tablet., 81 MG GTB DAILY, TAB 01/24/19 Lansoprazole* (Lansoprazole*) 30 Mg Capsule.dr, 30 MG GTB DAILY, CAP 01/24/19 Discontinued Reported Medications Hydrocodone/Acetaminophen (Hensley 5-325 Tablet) 1 Each Tablet, 1 EACH PO NEEDED, TAB 12/19/17 Lansoprazole* (Lansoprazole*) 30 Mg Capsule.dr, 30 MG PO DAILY, CAP 12/19/17 Discontinued Scripts Ondansetron (Ondansetron Odt) 4 Mg Tab.rapdis, 4 MG PO Q6H PRN for NAUSEA AND/OR VOMITING, #10 TAB Prov:YESICA CONNELL MD 08/24/18 Allergies Allergies: Coded Allergies: No Known Allergy (Verified , 01/24/19) PMhx/Soc History of Surgery: No Anesthesia Reaction: No Hx Neurological Disorder: No Hx Respiratory Disorders: No Hx Cardiac Disorders: No Hx Psychiatric Problems: No Hx Miscellaneous Medical Probl: Yes (Oral CA s/p chemoradiation intermission) Hx Alcohol Use: No Hx Substance Use: No Hx Tobacco Use: No Smoking Status: Never smoker FmHx Family History: No diabetes Physical Exam Vitals Vital Signs Date Temp Pulse Resp B/P (MAP) Pulse Ox O2 O2 Flow FiO2 Time Delivery Rate 01/24/19 97.4 55 18 134/84 100 Room Air 16:47 (101) 01/24/19 97.4 74 16 125/68 99 12:44 (87) Physical Exam Const: No acute distress Head: Atraumatic Eyes: Normal Conjunctiva ENT: Normal External Ears, Nose and Mouth. Neck: Full range of motion. No meningismus. Resp: No respiratory distress. No audible wheezes. Symmetric chest wall ri se. Cardio: Regular rate. Abd: Soft, non tender, non distended. Normal bowel sounds. G-tube in place but with a pinpoint leak. Skin: No petechiae or rashes Back: No midline or flank tenderness Ext: No cyanosis, or edema Neur: Awake and alert Psych: Normal Mood and Affect Results 24 hrs Current Medications Medications Dose Sig/Dasia Start Time Status Last (Trade) Ordered Route PRN Stop Time Admin Dose Reason Admin Diatrizoate 30 ml ONCE ONCE 01/24/19 DC Meglum/ PO 17:00 Diatrizoate 01/24/19 17:01 Sod (Gastrografin 66-10 Solution) Iohexol 30 ml STK-MED 01/24/19 DC (Omnipaque ONCE .ROUTE 16:54 300mg/ ml) 01/24/19 16:55 Procedures/MDM MDM The patient's presentation warrants further investigation. Previous medical records, if available, were reviewed. IMAGING Imaging and Radiology interpretation reviewed. KUB 1V Interpreted by me G-tube appears to be in place with lumen visible on gastrographin study. TREATMENT/DISPOSITION The patient requires a G-tube replacement. The risks and benefits of G-tube and replacement were discussed with the patient and he verbally consented. It was replaced without complication. PROCEDURE G-Tube Replacement Performer: Myself Consent: Risks and benefits discussed and patient verbally obtained Procedure: Previous g-tube balloon decompressed and tube removed. New G-tube inserted through gastrostomy and ballon inflated with 8 ml NS. Complications: None KUB: G-tube in place DISCHARGE Upon reevaluation of the patient, symptoms have improved. No emergent diagnoses were identified. At this time, I feel that the patient stable for discharge. The patient was instructed to follow-up with a primary care physician in 1-3 days. The patient will be given strict precautions with which to return to the emergency department. Prescriptions: None The patient's blood pressure was elevated at greater than 120/80 while in the emergency department. The patient was otherwise stable with no evidence of hypertensive urgency or emergency. The patient does not require admission for blood pressure control. I have discussed with the patient the risks of hypertension. I have instructed the patient to return to the ER for any new or worsening symptoms including chest pain, shortness of breath, headache, blurred vision, confusion, nausea, vomiting or LOC. I have advised the patient to follow up with the primary care physician for outpatient monitoring and treatment for hypertension in 1-3 days. Disclaimer: Inadvertent spelling and grammatical errors are likely due to EHR/dictation software use and do not reflect on the overall quality of patient care. Note that the electronic time recorded on this note does not necessarily reflect the actual time of the patient encounter. Departure Diagnosis: Primary Impression: Encounter for feeding tube placement Additional Impression: Malfunction of gastrostomy tube Condition: Stable Patient Instructions: Feeding Tube Replacement Additional Instructions: Thank you for for coming to [facility] for your care today. Please ask your nurse or provider if you have questions about your care today and do not leave until all your questions have been answered. Please use any medications given as directed and follow-up with your doctor (or the doctor you were referred to) in the next 1-3 days. If you do not have a primary care doctor you may follow up at the [facility] or [facility] (listed below). You may also use motrin and tylenol as needed for fever and/or pain unless instructed otherwise by your provider or nurse. Indications for more urgent follow-up have been discussed, but you may return to the Emergency Department at ANY time for any worrisome or worsening symptoms. If you have abdominal pain, please know that no test or exam you received is perfect and you should follow up within 8 hours for continued pain. If you had any imaging studies today, such as an X-Ray or CT Scan, these studies will be reviewed later by a radiologist. You will be called if there are important findings that were not identified today, so make sure the contact in formation you provided at registration is correct. If you received any narcotic pain control medicine today, such as Vicodin, M orphine or Dilaudid, your coordination and judgment may be affected for a number of hours. Please do not drive or operate heavy machinery, and you may want someone to assist you at home. If you were given a prescription for narcotic medication, be aware that it is very addictive- use sparingly and only if necessary. PLEASE SEEK FURTHER EVALUATION AND MANAGEMENT AT YOUR DOCTORS OFFICE WITHIN THE NEXT 1-3 DAYS. IT IS YOUR RESPONSIBILITY TO MAKE AN APPOINTMENT FOR FOLOW-UP CARE. IF YOU HAVE A PRIMARY DOCTOR, PLEASE CALL THEIR OFFICE TO SCHEDULE AN APPOINTMENT FOR FOLLOW UP. IF YOU DO NOT HAVE A PRIMARY DOCTOR YOU CAN CALL OUR PHYSICIAN REFERRAL HOTLINE AT IF YOU CAN NOT AFFORD TO SEE A PHYSICIAN YOU CAN CHOSE FROM THE FOLLOWING [facility]: [facility] [place] [address] [facility] [facility] [address] [facility] [address] [facility] [facility] [address] [facility]. [facility] [address] [facility]. [facility]. [address] MING GRAVES MD Jan 24, 2019 17:29
[2019-01-24 17:51] VITALS: BP 134/82; PULSE 62; RESP 16
== END 2019-01-24 17:59 | disposition home or self-care (01) ==
LOC: E/R 12:28
DX: K94.23 Gastrostomy malfunction (principal); Z43.1 Encounter for attention to gastrostomy; Z79.82 Long term (current) use of aspirin; Z85.819 Personal history of malignant neoplasm of unspecified site of lip, oral cavity, and pharynx
CPT/HCPCS: 74018; Q9967; Z7502; Z7610